=== PATIENT | male | born 1955 | race Caucasian/White ===

== ENCOUNTER 2020-12-14 10:42 | Emergency (ER) | payer MEDICARE, BC, SELFPAY ==
--- NOTE | ~2020-12-14 | XR_ITS ---
EXAMINATION: XR CHEST CLINICAL INFORMATION: Dry cough COMPARISON: None TECHNIQUE: 2 views of the chest were obtained. FINDINGS: There is no evidence of acute parenchymal disease, pneumothorax, or pleural effusion. Heart normal size. No evidence of pulmonary edema. There is an approximately 1.1 x 0.8 cm left mid hemithorax density overlying the posterior aspect of the left seventh rib. This may represent a bone island or possible calcified granuloma. XR/XR chest 2V IMPRESSION: No acute parenchymal disease.
[2020-12-14 11:32] VITALS: BP 126/80; PULSE 95; RESP 16; TEMP 37.3; O2SAT 97; BMI 30.9
[2020-12-14 12:38] LABS: MANUAL DIFF FLAG NO
[2020-12-14 12:43] LABS: Basophils Absolute Auto 0.1 X10*3/uL (0.0-0.2); Basophils Percent Auto 0.4 % (0-2); Eosinophils Absolute Auto 0.3 X10*3/uL (0.0-0.4); Eosinophils Percent Auto 2.4 % (0-4); Hematocrit 46.4 % (42-52); Hemoglobin 15.4 g/dl (14.0-18.0); Imm Gran Abs Auto 0.23 X10*3/uL (0.00-0.03); Imm Gran Pct Auto 1.9 % (0.0-0.4); Lymphocytes Percent Auto 16.2 % (20-40); Mean Corpuscular HGB Conc 33.2 g/dl (31.0-36.0); Mean Corpuscular Hemoglobin 28.6 pg (27.0-33.0); Mean Corpuscular Volume 86.2 fL (80-98); Mean Platelet Volume 11.4 fL (9.4-12.4); Monocytes Absolute Auto 0.9 X10*3/uL (0.1-1.2); Monocytes Percent Auto 6.9 % (2-11); Neutrophils Absolute Auto 8.9 X10*3/uL (2.0-8.3); Neutrophils Percent Auto 72.2 % (45-73); Platelet Count 270 X10*3/uL (160-400); Red Blood Count 5.38 X10*6/uL (4.60-5.80); Red Cell Distribution Width 11.9 % (11.0-16.0); White Blood Count 12.3 X10*3/uL (4.8-10.8)
[2020-12-14 13:53] VITALS: BP 130/88; PULSE 93; RESP 18; TEMP 37.1; O2SAT 98
--- NOTE | 2020-12-14 14:33 | ED_ITS ---
HPI - General Adult General Chief complaint: General Medical Stated complaint: passed out after coughing Time Seen by Provider: 12/14/20 13:50 Source: patient and family (, Juanis) Mode of arrival: ambulatory Limitations: no limitations History of Present Illness HPI narrative: 64-year-old male who presents emergency department for evaluation of cough x2 weeks. Patient states that he has coughing fits and spasms to the point where his face gets red any pops blood vessels on his face. He states that he has had this symptom for approximately 2 weeks. He states that the cough is nonproductive. He states that last night he was in bed and woke up with a coughing fit that caused him the pass out rule out of bed. Denies any injury from rolling out of bed. States he has had low-grade fever at home as high as 100.5? F. He denied chest pain, shortness of breath, dyspnea on exertion. He states he is having difficulty sleeping secondary to his cough. He has not noticed any rashes. He has not had any known tick bites. The patient was seen by his PCP 4 days prior diagnosed with upper respiratory tract infection. He was advised to take [id number] medications such as Mucinex and Zyrtec. States he has been taking these medications with no improvement. Patient does have hypertension and takes lisinopril/hydrochlorothiazide. The patient completed his Moderna COVID-19 vaccination on 10/29/2020. Related Data Previous Rx's Medication Instructions Recorded doxycycline hyclate 100 mg PO Q12H 10 Days #20 tab 12/14/20 Allergies Allergy/AdvReac Type Severity Reaction Status Date / Time No Known Allergies Allergy Verified 12/14/20 11:36 Review of Systems Review of Systems: Yes all other systems are reviewed and are negative [facility] Past Medical History [facility] Narrative: Past social history: The patient is . He denies tobacco, alcohol and drug use. Medical History High cholesterol HTN (hypertension) Prediabetes Social History Social History Advance Directives: No Advance Directives Information Provided: No Physical Exam 2 Vital Signs: Vital Signs: Last Vital Signs Temp 98.7 F 12/14/20 13:53 Pulse 93 12/14/20 13:53 Resp 18 06/10/21 13:53 BP 130/88 12/14/20 13:53 Pulse Ox 98 12/14/20 13:53 Body Mass Index 30.9 Const: General: cooperative and healthy appearing Orientation/consciousness: oriented to person and oriented to place Limitations: no limitations HENMT: Head: Yes normal to inspection, Yes normocephalic and Yes atraumatic Ears: external ears normal General nose exam: Normal external nose present Face and sinus: Yes normal facial exam Mouth: Normal oral and palatal mucosa present Throat: Yes posterior oropharynx normal Eyes: Periorbital: periorbital findings normal Eyelids: Yes eyelids normal Conjunctivae: conjunctivae normal Sclerae: sclerae normal Corneas: corneas normal Pupils: Equal, round and reactive pupils present Direct Ophthalmoscopy: normal light reflex Neck: Neck: Yes full ROM, Yes no lymphadenopathy, Yes no meningeal signs, Yes trachea midline and Yes supple Chest: Chest palpation & inspection: normal inspection of the chest and normal palpation of entire chest wall Resp: Other: Patient develops coughing fit when he takes a deep breath in. Effort & Inspection: normal respiratory effort and able to speak in complete sentences Auscultation: rhonchi throughout Cardio: Rate: regular rate Rhythm: regular rhythm Heart sounds: S1 normal heart sound present, S2 normal heart sound present and no murmurs GI: Inspection: Yes normal to inspection Palpation (GI): Soft to palpation, nontender, no guarding, not rigid and No hepatosplenomegaly present : General: Yes no CVA tenderness Back/Spine/Pelvis: Back: no CVA tenderness Cervical Spine: normal cervical lordosis Thoracic/Lumbar Spine: thoracic and lumbar spine normal to inspection Skin: Lesions: no lesions Rashes: no rashes Wounds: no wounds Neuro: General: oriented to person, oriented to place and no meningeal signs Cranial nerves: Yes CN's II-XII intact bilaterally and Yes Equal, round and reactive pupils present Cognition (Neuro): normal cognition Motor exam (neuro): 5/5 motor strength present throughout Extrem: General: Yes normal to inspection and Yes full ROM Psych: Appearance: well kempt Mental Status: mental status grossly normal Speech and movement: Normal speech and movement present Affect: normal affect Attitude: cooperative Thought process: Normal thought process present Thought content: Normal thought content present Course Course Course Narrative: 64-year-old male who presents emergency department for evaluation of persistent, spasms of coughing x2 weeks with an episode post-tus sive syncope last night. Vital signs revealed a slightly elevated temperature at 99.2? otherwise remarkable with an O2 saturation of 97% on room air. Physical examination revealed diffuse rhonchi and coughing with expiration on his lung exam. Exam was otherwise unremarkable. The [place] [address]. Chest x-ray revealed no acute infiltrates. At this time, I am concerned the patient may have an atypical bacterial infection and I did discuss this with him. The patient will be treated empirically with doxycycline 100 mg twice a day for 10 days. He was advised to follow his PCPs other recommendations for vlav-vba-unjbyar medications. He was given printed instructions advised to follow-up with his PCP in 2 days for re- evaluation and return if symptoms get worse. Medical Decision Making Lab Data Result diagrams: 12/14/20 12:32 12/14/20 12:33 Labs: Lab Results 12/14/20 Range/Units 12:32 WBC 12.3 H (4.8-10.8) X10*3/uL RBC 5.38 (4.60-5.80) X10*6/uL Hgb 15.4 (14.0-18.0) g/dl Hct 46.4 (42-52) % MCV 86.2 (80-98) fL MCH 28.6 (27.0-33.0) pg MCHC 33.2 (31.0-36.0) g/dl RDW 11.9 (11.0-16.0) % Plt Count 270 (160-400) X10*3/uL MPV 11.4 (9.4-12.4) fL Immature Gran % (Auto) 1.9 H (0.0-0.4) % Neut % (Auto) 72.2 (45-73) % Lymph % (Auto) 16.2 L (20-40) % Kent % (Auto) 6.9 (2-11) % Eos % (Auto) 2.4 (0-4) % Baso % (Auto) 0.4 (0-2) % Lymph # (Auto) 2.0 (1.2-4.9) X10*3/uL Kent # (Auto) 0.9 (0.1-1.2) X10*3/uL Eos # (Auto) 0.3 (0.0-0.4) X10*3/uL Baso # (Auto) 0.1 (0.0-0.2) X10*3/uL Abs Immat Gran (auto) 0.23 H (0.00-0.03) X10*3/uL Absolute Neuts (auto) 8.9 H (2.0-8.3) X10*3/uL Absolute Nucleated RBC 0.000 (0.0-0.012) X10*3/uL Nucleated RBC % (auto) 0.0 (0.0-0.2) /100WBC Discharge Plan Discharge Clinical Impression: Post-tussive syncope Acute bronchitis Qualifiers: Bronchitis organism: unspecified organism Qualified Code(s): J20.9 - Acute bronchitis, unspecified Patient Disposition: Home, Self-Care Instructions: Syncope (ED), Acute Bronchitis (ED) Additional Instructions: Your white blood cell count was slightly elevated at 12,300 thousand three hundred. Your chest x-ray did not reveal any evidence of pneumonia. At this time, I am concerned that you may have an atypical bacterial infection causing your cough. Take doxycycline 100 mg pills, 1 pill twice a day for 10 days. Continue the outpatient medications as recommended by your doctor. Follow-up with your doctor in 2 days. Please return to the emergency department if your symptoms get worse or if you develop any symptoms that are concerning to you. Prescriptions: New doxycycline hyclate 100 mg tablet 100 mg PO Q12H 10 Days Qty: 20 RF: 0
== END 2020-12-14 14:47 | disposition home or self-care (01) ==
PROVIDERS: Emergency Provider Emergency Medicine Emergency Medical Services; PCP Internal Medicine
DX: J20.9 Acute bronchitis, unspecified (principal); I10 Essential (primary) hypertension; Z79.899 Other long term (current) drug therapy
CPT/HCPCS: 36415; 71046; 85025; 99283

== ENCOUNTER 2023-04-04 08:57 | Outpatient (AMB) | payer MEDICARE, SELFPAY ==
--- NOTE | 2023-04-04 09:30 | MHC.OFFWIV ---
Intake Vital Signs 04/04/23 09:35 Height 5 ft 2 in Weight 175 lb BMI 32.0 BP 110/70 Blood Pressure Location Rt brachial Position Sitting Pulse 93 Pulse Source Pulse Oximeter Temp 96.2 F L Temp Source Temporal Artery Scan Pulse Oximetry (%) 100 Oxygen Delivery Method Room Air Intake Visit Reasons: EP rash on RT Thigh/lump Intake Note: Pt is here c/o rash on his upper right thigh. Pt states he has had a rash for over one week. Patient Tobacco Use Status: Never used Tobacco Allergies No Known Allergies Allergy (Verified 04/04/23 09:31) Do you need a note to return to daycare/school/sports/work: No HPI HPI Comments History of Present Illness Details This is a 67-year-old male with a past medical history of hypertension, hyperlipidemia and depression presenting for evaluation of a lesion on his left buttock that is itchy and painful. Patient first noticed an itching sensation approximately 1 week ago and then developed a lump underlying the lesion. Patient states it is uncomfortable to touch and he has used Benadryl lotion, zinc cream and pain cream topically without relief. Patient denies having any fevers, chills or discharge from this lesion. Additionally, he denies any trauma to his left buttock. [facility] Medical History Prediabetes High cholesterol HTN (hypertension) Social History Patient Tobacco Use Status: Never used Tobacco Review of Systems Const Denies chills, Denies fatigue and Denies fever(s) Skin/Breast Reports as per HPI, Reports pruritus, Reports lesions, Reports new lesions, Reports erythema, Denies unusual bruising and Denies wounds Psych Reports no additional complaints Endo Denies fatigue Physical Exam Vital Signs: Last Vital Signs Temp 96.2 F L 04/04/23 09:35 Pulse 93 04/04/23 09:35 BP 110/70 04/04/23 09:35 Pulse Ox 100 04/04/23 09:35 Oxygen Delivery Method Room Air 04/04/23 09:35 BMI result Body Mass Index 32.0 Const General: cooperative and comfortable; No anxious Nutritional Appearance: well nourished Orientation/consciousness: patient oriented x3 Limitations: no limitations Skin Lesions: lesion noted (excoriated erythematous lesion 2.5cm round L lateral buttock) buttock size (2.5), borders well-defined, color red, consistency firm; not fluctuant and not mobile, morphology, surface not with central clearing and with discharge, tender and other (no central fluctuance or active exudate) Wounds: no wounds Neuro General: patient oriented x3 Psych Appearance: grossly normal Mental Status: mental status grossly normal Insight: Good insight present (Psych) Judgement: Good judgement present (Psych) Assessment & Plan Assessment & Plan (1) Abscess of buttock, left: Code(s): L02.31 - Cutaneous abscess of buttock Plan: Patient will be discharged home and instructed to use warm compresses at least 4 times daily and take doxycycline twice daily for the next 7 days. Patient is encouraged to be re-evaluated by his primary care physician or return to urgent care in 5 days if he sees no clinical improvement. Medications: New doxycycline monohydrate (Monodox) 100 mg PO BID 14 caps 0RF Coding Level of Care Code New Pt Level 3 (26924) Diagnoses Abscess of buttock, left L02.31 Time Spent (min) 15
[2023-04-04 09:35] VITALS: BP 110/70; PULSE 93; TEMP 35.7; O2SAT 100; BMI 32.0
== END 2023-04-04 10:45 | disposition home or self-care (01) ==
PROVIDERS: PCP Nurse Practitioner Family; Visit Provider Physician Assistant
DX: L02.31 Cutaneous abscess of buttock (principal)
CPT/HCPCS: 99203

== ENCOUNTER 2023-05-23 09:50 | Outpatient (AMB) | payer MEDICARE, SELFPAY ==
--- NOTE | 2023-05-23 11:32 | MHC.OFFWIV ---
Intake Vital Signs 05/23/23 11:33 Height 5 ft 2 in Weight 79.379 kg BMI 32.0 BP 104/64 Blood Pressure Location Lt brachial Position Sitting Pulse 71 Pulse Source Pulse Oximeter Temp 97.8 F Temp Source Temporal Artery Scan Pulse Oximetry (%) 98 Oxygen Delivery Method Room Air Intake Visit Reasons: EP, left leg pain Intake Note: pt is here for c/o left leg pain Patient Tobacco Use Status: Never used Tobacco Allergies No Known Allergies Allergy (Verified 05/23/23 11:34) Do you need a note to return to daycare/school/sports/work: Yes HPI HPI Comments History of Present Illness Details 1134 67 year old male hx of prediabetes, htn, hld presents w/ complains of throbbing left lower extremity, worse in the thigh region however still feels it below his knee. Patient reports this is been ongoing for 2 days and pretty uncomfortable. This has never happened to him before. No history of blood clots. No history of smoking, long travel, hormone replacement therapy, malignancy. Patient denies chest pain, shortness of breath, fevers, chills, nausea, vomiting, abdominal pain. PE benign Likely musculoskeletal pain versus DVT. Unlikely arterial occlusion, threat to limb or neurovascular compromise. Plan- will obtain venous duplex. Educated patient on diagnosis and treatment plan, answered all question, patient verbalizes understanding. At this time patient will be discharged home, advised to return with new or worsening symptoms. Educated on worrisome signs and symptoms and when to return. At this time I feel comfortable discharge home. [facility] Medical History Prediabetes High cholesterol HTN (hypertension) Social History Patient Tobacco Use Status: Never used Tobacco Review of Systems Const Details: Constitutional : No Weight loss, No Fever, No Chills, No Fatigue, No Malaise ENT/Mouth : No sore throat, No Rhinorrhea Eyes: No Eye Pain, No Swelling, No Redness Cardiovascular : No Chest Pain, No SOB, No Dyspnea on Exertion, No Orthopnea, No Edema, No Palpitations Respiratory : No Cough, No Sputum, No Wheezing Gastrointestinal : No Nausea, No Vomiting, No Diarrhea, No Constipation, No abdominal Pain, No Hematochezia, No Melena Genitourinary : No Dysuria, No Urinary Frequency, No Hematuria, Musculoskeletal : No joint pain, No Myalgias, No Joint Swelling, + leg pain Skin : No Skin Lesions, No rash Neuro : No Weakness, No Numbness, No Dizziness, No Headache Psych : No Anxiety/Panic, No Depression All other systems reviewed and are negative All systems reviewed & are unremarkable except as noted in HPI and below Physical Exam Vital Signs: Vital signs stable Appearance: Alert.? Oriented X3.? No acute distress.? Head: Normocephalic, atraumatic, no step-offs or deformities Eyes: Pupils equal, round and reactive to light.? ENT: Pharynx normal.? Neck: Normal inspection.? Neck supple.? CVS: Normal heart rate and rhythm.? Pulses normal.? Respiratory: No respiratory distress.? Breath sounds normal.? Abdomen: Soft and nontender.? Skin: Skin warm and dry.? Normal skin color.? Normal skin turgor.? Extremities: No lower extremity edema.? No calf ttp. 5/5 strength to bilateral upper and lower extremities 2+ DP,AT,PT pulses equal and b/l Neuro: Oriented X 3.? No motor deficit.? No sensory deficit. CN 2-12 intact Assessment & Plan Assessment & Plan (1) Left leg pain: Code(s): M79.605 - Pain in left leg Plan Take your medications as prescribed. If you were prescribed antibiotics today, it is important that you take your medication to their entirety, do not skip any doses, do not finish them early. Follow-up with your primary care provider this week. Return to the emergency department with new or worsening symptoms. Such as fevers, chills, chest pain, shortness of breath, nausea, vomiting, dizziness, headache, vision changes, lethargy In case of emergency call 911 Orders: Orders US venous duplex LE LT Today M79.605 - Pain in left leg Coding Level of Care Code Est Pt Level 3 (34674) Diagnoses Left leg pain M79.605
[2023-05-23 11:33] VITALS: BP 104/64; PULSE 71; TEMP 36.6; O2SAT 98; BMI 32.0
== END 2023-05-23 12:05 | disposition home or self-care (01) ==
PROVIDERS: PCP Nurse Practitioner Family; Visit Provider Physician Assistant
DX: M79.605 Pain in left leg (principal)
CPT/HCPCS: 99213

== ENCOUNTER 2023-05-23 11:55 | Outpatient (REF) | payer MEDICARE, SELFPAY ==
--- NOTE | ~2023-05-23 | US_ITS ---
EXAMINATION: US VENOUS ULTRASOUND WITH DOPPLER LOWER EXTREMITY, LEFT CLINICAL INFORMATION: Left leg pain. COMPARISON: None available. TECHNIQUE: Ultrasound of the deep veins is performed from the hip to the calf with compression sonography and color and pulse Doppler assessment. Spectral analysis with color-flow imaging is performed. FINDINGS: There is normal venous compression and respiratory variation and augmented flow. The visualized common femoral vein, superficial femoral vein, profunda femoral vein, popliteal vein, and the trifurcation region shows no evidence of deep venous thrombosis. There is no significant popliteal fossa cyst. The area of pain in the left lateral thigh was examined. No discrete abnormality seen. US/US venous duplex LE LT IMPRESSION: No DVT demonstrated in the left lower extremity.
== END 2023-05-23 11:56 | disposition home or self-care (01) ==
LOC: HO.HMGCX 11:55
PROVIDERS: Visit Provider Physician Assistant
DX: M79.605 Pain in left leg (principal)
CPT/HCPCS: 93971

== ENCOUNTER 2023-05-25 07:55 | Emergency (ER) | payer MEDICARE, SELFPAY ==
--- NOTE | ~2023-05-25 | XR_ITS ---
EXAMINATION: XR knee LT 3V CLINICAL INFORMATION: Reason for Exam left knee pain COMPARISON: None available at the time of this dictation. TECHNIQUE: Frontal lateral oblique views 4 views. FINDINGS: BONES: No fracture or dislocation is present. JOINTS: Joint spaces are preserved. No osteophytes. SOFT TISSUE: Normal XR/XR knee LT 3V IMPRESSION: No radiographic evidence of acute osseous changes. No significant osseous changes to explain patient's knee pain symptoms, MRI could be utilized to assess for possible soft tissue derangements if clinically indicated.
[2023-05-25 08:08] VITALS: BP 161/91; PULSE 95; RESP 20; TEMP 36.6; O2SAT 99; BMI 32.1
--- NOTE | 2023-05-25 08:34 | ED_ITS ---
HPI - General Adult General Chief complaint: Extremity Injury, Lower Stated complaint: L knee/leg pain Time Seen by Provider: 05/25/23 08:27 Source: patient Mode of arrival: ambulatory Limitations: no limitations History of Present Illness HPI narrative: 67 years old male presented to the emergency department complaining of left knee pain a traumatic for about a week or so. He was seen in the urgent care on May 23 ultrasound was done was negative for DVT. He has history of gout in the past. He has history of type 2 diabetes Onset (ago): week(s) (1) Location: lower extremity (left knee) Radiation: non-radiation Severity: moderate Quality: burning Pain Consistency: constant Relieving factors: none Exacerbating factors: none Associated symptoms: denies other symptoms Related Data Home Medications Medication Instructions Recorded Confirmed buspirone 15 mg tablet 15 mg PO BID 04/04/23 lisinopril 20 1 tab PO DAILY 04/04/23 mg-hydrochlorothiazide 12.5 mg tablet paroxetine HCl 30 mg tablet mg PO 04/04/23 simvastatin 40 mg tablet 40 mg PO BEDTIME 04/04/23 Previous Rx's Medication Instructions Recorded ibuprofen 800 mg tablet 800 mg PO TID PRN pain #20 tabs 05/25/23 Allergies Allergy/AdvReac Type Severity Reaction Status Date / Time No Known Allergies Allergy Verified 05/25/23 08:12 Review of Systems 2 Constitutional: Constitutional: Reports no additional constitutional complaints ENT: Reports system reviewed and no additional complaints, except as documented Musculoskeletal: Musculoskeletal: Reports no additional musculoskeletal complaints Neurologic: Reports Abnormal speech present ON LICENSE OF [facility] Past Medical History Medical History Prediabetes High cholesterol HTN (hypertension) Social History Social History Patient Tobacco Use Status: Never used Tobacco Use of substances other than those prescribed or required for medical reasons: No Advance Directives: No Advance Directives Information Provided: Yes Physical Exam ED Vital Signs: Vital Signs - 24 hr 05/25/23 08:08 05/25/23 09:04 Temperature 97.9 F 98.3 F Pulse Rate 95 94 Respiratory Rate 20 16 Blood Pressure 161/91 H 153/95 H Pulse Oximetry 99 96 Oxygen Delivery Method Room Air Room Air BMI result Body Mass Index 32.1 He looks well is no toxic-appearing Const General: cooperative, comfortable and no acute distress Nutritional Appearance: well nourished Orientation/consciousness: patient oriented x3 Limitations: no limitations HENMT Head: Yes normal to inspection Ears: hearing grossly normal bilaterally Face and sinus: Yes normal facial exam Throat: Yes posterior oropharynx normal Neck Neck: Yes normal visual inspection Chest Chest palpation & inspection: normal inspection of the chest Resp Effort & Inspection: normal respiratory effort Auscultation: clear to auscultation bilaterally Cardio Jugular venous distension: no JVD Rate: regular rate Rhythm: regular rhythm GI Inspection: Yes normal to inspection Palpation (GI): Soft to palpation Auscultation: normal bowel sounds General: Yes no CVA tenderness Back/Spine/Pelvis Back: no CVA tenderness Skin General skin exam: no rashes or lesions noted and elasticity normal Lesions: no lesions Rashes: no rashes Hair: normal Neuro General: patient oriented x3 Cranial nerves: Yes CN's II-XII intact bilaterally Cognition (Neuro): normal cognition Speech: Abnormal speech present Gait exam (Neuro): Normal gait present Extrem Other: Left knee no deformity no redness no effusion General: Yes normal to inspection Course Reevaluation(s) Reevaluation #1: Remains stable afebrile nontoxic workup negative inflammatory marker normal white count normal x-ray reviewed within normal limit discharge of the pain is unclear he may be radiculopathy or muscular pain will refer to Ortho as outpatient Time: 10:09 Medical Decision Making Medical Decision Making [facility] Narrative: Patient presented with left knee pain already had an ultrasound as outpatient 2 days ago negative for DVT, will do an x-ray at this time and check labs @10 AM workup negative labs within normal limit including inflammatory marker, x-ray no fracture, ultrasound was done 2 days ago I do not think any to repeat another one . I think the patient can be safely discharged home follow-up with ortho. He is very comfortable with the plan of care. Differential Diagnosis Differential Diagnoses: The differential diagnosis associated with the presentation includes DJD/gout Admission/Observation Consideration of admission/observation: Escalation of care including admission/observation considered Lab Data [facility] Lab Attestation statement: I reviewed the patient's lab results. 05/25/23 08:42 05/25/23 08:42 Labs: Lab Results 05/25/23 Range/Units 08:42 WBC 8.5 (4.8-10.8) X10*3/uL RBC 5.15 (4.60-5.80) X10*6/uL Hgb 14.6 (14.0-18.0) g/dl Hct 42.2 (42.0-52.0) % MCV 81.9 (80.0-98.0) fL MCH 28.3 (27.0-33.0) pg MCHC 34.6 (31.0-36.0) g/dl RDW 12.1 (11.0-16.0) % Plt Count 187 (160-400) X10*3/uL MPV 11.2 (9.4-12.4) fL Immature Gran % (Auto) 0.9 H (0.0-0.4) % Neut % (Auto) 65.6 (45-73) % Lymph % (Auto) 24.4 (20-40) % Sanders % (Auto) 6.4 (2-11) % Eos % (Auto) 2.2 (0-4) % Baso % (Auto) 0.5 (0-2) % Lymph # (Auto) 2.1 (1.2-4.9) X10*3/uL Sanders # (Auto) 0.5 (0.1-1.2) X10*3/uL Eos # (Auto) 0.2 (0.0-0.4) X10*3/uL Baso # (Auto) 0.0 (0.0-0.2) X10*3/uL Abs Immat Gran (auto) 0.08 H (0.00-0.03) X10*3/uL Absolute Neuts (auto) 5.5 (2.0-8.3) x10*3/uL Absolute Nucleated RBC 0.000 (0.0-0.012) X10*3/uL Nucleated RBC % (auto) 0.0 (0.0-0.2) /100WBC Sodium 141 (135-145) mmol/L Potassium 3.9 (3.3-5.1) mmol/L Chloride 107 (96-108) mmol/L Carbon Dioxide 24 (22-29) mmol/L Anion Gap 14 (12-20) BUN 15 (9-16) mg/dL Creatinine 0.98 (0.5-1.4) mg/dL Estim Creat Clear Calc 66.8 Estimated GFR > 60 Random Glucose 169 H (60-115) mg/dL Uric Acid 6.6 (3.4-7.0) mg/dL Calcium 10.0 (8.4-10.2) mg/dL Total Bilirubin 0.6 (0.0-1.0) mg/dL AST 20 (5-37) U/L ALT 21 (0-40) U/L Alkaline Phosphatase 61 (39-117) U/L C-Reactive Protein 0.21 (< or = 0.50) mg/dL Total Protein 6.9 (6.5-8.0) g/dL Albumin 4.4 (3.5-5.0) g/dL Independent Interpretation I performed an independent interpretation of an: Plain X-Ray Interpretation: Normal knee x-ray Radiology Impression Discussion of test interpretation with radiology: I have reviewed the radiologist's reading. Radiologist Impression: None available at the time of this dictation. TECHNIQUE: Frontal lateral oblique views 4 views. FINDINGS: BONES: No fracture or dislocation is present. JOINTS: Joint spaces are preserved. No osteophytes. SOFT TISSUE: Normal XR/XR knee LT 3V IMPRESSION: No radiographic evidence of acute osseous changes. No significant osseous changes to explain patient's knee pain symptoms, MRI could be utilized to assess for possible soft tissue derangements if clinically indicated. External Record Review External record reviewed: Outpatient record Review urgent care note to of 2 days ago Prescription Management I considered prescription management with: Pain Medication Discharge Plan Discharge Clinical Impression: Knee pain, left Patient Disposition: Home, Self-Care Instructions: Knee Pain (ED) Prescriptions: New ibuprofen 800 mg tablet 800 mg PO TID PRN (Reason: pain) Qty: 20 0RF No Action buspirone 15 mg tablet 15 mg PO BID paroxetine HCl 30 mg tablet PO simvastatin 40 mg tablet 40 mg PO BEDTIME lisinopril-hydrochlorothiazide 20-12.5 mg tablet 1 tab PO DAILY Referrals: Juan Carlos Negro MD [Physician] - 5 days
[2023-05-25 08:46] LABS: MANUAL DIFF FLAG NO
[2023-05-25 08:50] LABS: Basophils Percent Auto 0.5 % (0-2); Eosinophils Absolute Auto 0.2 X10*3/uL (0.0-0.4); Eosinophils Percent Auto 2.2 % (0-4); Hematocrit 42.2 % (42.0-52.0); Hemoglobin 14.6 g/dl (14.0-18.0); Imm Gran Abs Auto 0.08 X10*3/uL (0.00-0.03); Imm Gran Pct Auto 0.9 % (0.0-0.4); Lymphocytes Absolute Auto 2.1 X10*3/uL (1.2-4.9); Lymphocytes Percent Auto 24.4 % (20-40); Mean Corpuscular HGB Conc 34.6 g/dl (31.0-36.0); Mean Corpuscular Hemoglobin 28.3 pg (27.0-33.0); Mean Corpuscular Volume 81.9 fL (80.0-98.0); Mean Platelet Volume 11.2 fL (9.4-12.4); Monocytes Absolute Auto 0.5 X10*3/uL (0.1-1.2); Monocytes Percent Auto 6.4 % (2-11); Neutrophils Absolute Auto 5.5 x10*3/uL (2.0-8.3); Neutrophils Percent Auto 65.6 % (45-73); Platelet Count 187 X10*3/uL (160-400); Red Blood Count 5.15 X10*6/uL (4.60-5.80); Red Cell Distribution Width 12.1 % (11.0-16.0); White Blood Count 8.5 X10*3/uL (4.8-10.8)
[2023-05-25 09:04] VITALS: BP 153/95; PULSE 94; RESP 16; TEMP 36.8; O2SAT 96
[2023-05-25 09:04] LABS: Alanine Aminotransferase 21 U/L (0-40); Albumin Level 4.4 g/dL (3.5-5.0); Alkaline Phosphatase 61 U/L (39-117); Anion Gap 14 (12-20); Aspartate Amino Transferase 20 U/L (5-37); Bilirubin Total 0.6 mg/dL (0.0-1.0); Blood Urea Nitrogen 15 mg/dL (9-16); C Reactive Protein 0.21 mg/dL (< or = 0.50); Carbon Dioxide 24 mmol/L (22-29); Chloride 107 mmol/L (96-108); Creatinine Clr Calc Pharmacy 66.8; Estimated Glomerular Filt Rate > 60; Glucose Random 169 mg/dL (60-115); Potassium 3.9 mmol/L (3.3-5.1); Sodium 141 mmol/L (135-145); Total Protein 6.9 g/dL (6.5-8.0); Uric Acid 6.6 mg/dL (3.4-7.0)
--- NOTE | 2023-05-25 09:09 | PC.NURSE ---
back from xray. changed. no redness/swelling to left leg. reports left leg/thigh/knee intermittent pain x1 wk. RADFORD w/o limits. +CMS. aox4. calm, coop. no distress
[2023-05-25 10:00] VITALS: BP 151/99; PULSE 72; RESP 16; TEMP 36.9; O2SAT 97
== END 2023-05-25 10:38 | disposition home or self-care (01) ==
PROVIDERS: Emergency Provider Emergency Medicine; PCP Nurse Practitioner Family
DX: M25.562 Pain in left knee (principal); Z79.899 Other long term (current) drug therapy
CPT/HCPCS: 36415; 73562; 80053; 84550; 85025; 86140; 99284

== ENCOUNTER 2023-05-31 00:08 | Emergency (ER) | payer MEDICARE, SELFPAY ==
[2023-05-31 00:33] VITALS: BP 177/84; PULSE 73; RESP 18; TEMP 37.1; O2SAT 96; BMI 31.2
--- NOTE | 2023-05-31 01:37 | ED_ITS ---
HPI - General Adult General Chief complaint: Extremity Problem Stated complaint: Left leg pain Time Seen by Provider: 05/31/23 01:25 Source: patient, RN notes reviewed and old records reviewed Mode of arrival: ambulatory Limitations: no limitations History of Present Illness HPI narrative: 67-year-old male presents for evaluation of leg pain This is the patient's 3rd visit in the last 10 days for same complaint. He initially went to urgent care on 12/21/2022. He had an ultrasound to rule out DVT. Patient return to the ED 2 days later and had an x-ray and labs all of which was unremarkable. The patient was discharged with ibuprofen. He was given Orthopedic follow-up which he states is in the middle of June Patient has been using all the medications are recommended and states he continues to have pain occasion his left hip, sometimes in his left knee, the pain is sometimes and left thigh or left sotomayor. He denies any specific injury His pain is 10/10 and worse at night to the point where he cannot sleep. Related Data Home Medications Medication Instructions Recorded Confirmed buspirone 15 mg tablet 15 mg PO BID 04/04/23 lisinopril 20 1 tab PO DAILY 04/04/23 mg-hydrochlorothiazide 12.5 mg tablet paroxetine HCl 30 mg tablet mg PO 04/04/23 simvastatin 40 mg tablet 40 mg PO BEDTIME 04/04/23 Previous Rx's Medication Instructions Recorded ibuprofen 800 mg tablet 800 mg PO TID PRN pain #20 tabs 05/25/23 oxycodone-acetaminophen 5 mg-325 1 tab PO BEDTIME PRN severe pain 05/31/23 mg tablet (Percocet) (scale score 7-10) #14 tabs Allergies Allergy/AdvReac Type Severity Reaction Status Date / Time No Known Allergies Allergy Verified 05/25/23 08:12 Review of Systems Constitutional: Constitutional: Reports as per HPI, Denies chills and Denies fever(s) Cardiovascular: Cardiovascular: Denies chest pain and Denies dyspnea Respiratory: Respiratory: Denies cough and Denies dyspnea PMFSH Past Medical History Medical History Prediabetes High cholesterol HTN (hypertension) Social History Patient Tobacco Use Status: Never used Tobacco Advance Directives: No Advance Directives Information Provided: Yes Physical Exam ED Vital Signs: Vital Signs - 24 hr 05/31/23 00:33 Temperature 98.7 F Pulse Rate 73 Respiratory Rate 18 Blood Pressure 177/84 H Pulse Oximetry 96 Oxygen Delivery Method Room Air BMI result Body Mass Index 31.2 Const General: healthy appearing, comfortable, no acute distress, alert and awake Nutritional Appearance: well nourished Orientation/consciousness: patient oriented x3 HENMT Head: Yes normocephalic and Yes atraumatic Throat: Yes posterior oropharynx normal Eyes Eyelids: Yes eyelids normal Conjunctivae: conjunctivae normal Sclerae: sclerae normal Corneas: corneas normal Pupils: Equal, round and reactive pupils present EOM: EOMs intact bilaterally Neck Neck: Yes full ROM Resp Effort & Inspection: normal respiratory effort, able to speak in complete sentences and not labored Cardio Rate: regular rate Rhythm: regular rhythm GI Inspection: No distended Palpation (GI): Soft to palpation, not firm, nontender, no guarding and not rigid Back/Spine/Pelvis Other: No lumbar vertebral or paraspinous muscle tenderness. Skin General skin exam: elasticity normal Neuro General: patient oriented x3 Cranial nerves: Yes Equal, round and reactive pupils present and Yes Bilaterally intact EOM present Cognition (Neuro): normal cognition Extrem Other: Moving all extremities well without any obvious deformities Patient has full range of motion with flexion and extension of the left hip, knee, ankle. No tenderness with palpation left hip, knee, ankle. No calf tenderness Negative [place] Medical Decision Making Medical Decision Making MDM Narrative: 67-year-old male presents for evaluation of left lower extremity pain. This is her 3rd visit. I reviewed his recent workup that included ultrasound of the lower extremity, x-rays of the left lower extremity as well as labs with no inflammations inflammatory markers. He does have a history of gout but there is no erythema is symptoms are intermittent. This is less likely to be gout. I do not see any indication for further emergent workup or imaging at this time. The patient will be discharged with Percocet for breakthrough pain and will follow- up with orthopedics as planned Differential Diagnosis Differential Diagnoses: The differential diagnosis associated with the present ation includes Left leg pain Osteoarthritis Neuropathy Radiculopathy Sciatica DVT Gout Tests considered The following testing was considered but not selected: Repeating labs, x-ray imaging of the left lower extremity was considered Prescription Management I considered prescription management with: Pain Medication Chronic Conditions Patient?s care impacted by: Hypertension Discharge Plan Discharge Clinical Impression: Acute pain of left lower extremity Patient Disposition: Home, Self-Care Instructions: Leg Pain (ED) Additional Instructions: You may continue to use ibuprofen/Tylenol as needed for pain. You may continue to use your lidocaine patches or creams Use Percocet as needed for severe, breakthrough pain. This may make you sleepy, do not drink alcohol or drive after taking it. Do not take extra Tylenol if your taking Percocet as Tylenol is in this medication Follow-up with orthopedics as discussed Prescriptions: New oxycodone-acetaminophen [Percocet] 5-325 mg tablet 1 tab PO BEDTIME PRN (Reason: severe pain (scale score 7-10)) Qty: 14 0RF Rx Instructions: Partial Fill upon patient request. No Action ibuprofen 800 mg tablet 800 mg PO TID PRN (Reason: pain) Qty: 20 0RF buspirone 15 mg tablet 15 mg PO BID paroxetine HCl 30 mg tablet PO simvastatin 40 mg tablet 40 mg PO BEDTIME lisinopril-hydrochlorothiazide 20-12.5 mg tablet 1 tab PO DAILY
[2023-05-31] MEDS: Ketorolac Tromethamine 30 MG/ML VIAL IM (01:56)
--- NOTE | 2023-05-31 01:59 | PC.NURSE ---
pt medicated per mar prior to d/c. pt ambulatory with steady gait. leg appears normal in color no redness/swelling noted. full rom. pt will f/u with orthopedics.
== END 2023-05-31 02:01 | disposition home or self-care (01) ==
PROVIDERS: Emergency Provider Internal Medicine; PCP Nurse Practitioner Family
DX: M79.605 Pain in left leg (principal); I10 Essential (primary) hypertension; E78.5 Hyperlipidemia, unspecified; Z79.899 Other long term (current) drug therapy; Z79.02 Long term (current) use of antithrombotics/antiplatelets
CPT/HCPCS: 96372; 99283; 99284; J1885

== ENCOUNTER 2023-06-09 05:00 | Emergency (ER) | payer MEDICARE, SELFPAY ==
[2023-06-09 05:01] VITALS: BP 171/117; PULSE 90; RESP 16; TEMP 36.1; O2SAT 99; BMI 32.1
--- NOTE | 2023-06-09 08:10 | ED.GENADULT ---
HPI - General Adult General Chief complaint: Extremity Injury, Lower Stated complaint: knee/hip pain Time Seen by Provider: 06/09/23 08:03 Source: patient Mode of arrival: ambulatory Limitations: no limitations History of Present Illness HPI narrative: This is the 4th visit in 4 weeks for left knee pain. He has had negative doppler for DVT, negative xray there is mild djd. He comes asking for narcotics. There is no fever, his inflammatory markers were negative. He denies any radicular back pain. He is scheduled to see Dr. Negro on 06/19 Onset (ago): week(s) Location: left (knee) Severity: mild Related Data Home Medications Medication Instructions Recorded Confirmed buspirone 15 mg tablet 15 mg PO BID 04/04/23 lisinopril 20 1 tab PO DAILY 04/04/23 mg-hydrochlorothiazide 12.5 mg tablet paroxetine HCl 30 mg tablet mg PO 04/04/23 simvastatin 40 mg tablet 40 mg PO BEDTIME 04/04/23 Previous Rx's Medication Instructions Recorded ibuprofen 800 mg tablet 800 mg PO TID PRN pain #20 tabs 05/25/23 oxycodone-acetaminophen 5 mg-325 1 tab PO BEDTIME PRN severe pain 05/31/23 mg tablet (Percocet) (scale score 7-10) #14 tabs cyclobenzaprine 10 mg tablet 10 mg PO TID #10 tabs 06/09/23 naproxen 500 mg tablet (Naprosyn) 500 mg PO BID #20 tabs 06/09/23 Allergies Allergy/AdvReac Type Severity Reaction Status Date / Time No Known Allergies Allergy Verified 05/25/23 08:12 Review of Systems Review of Systems: Yes all other systems are reviewed and are negative Neurologic: Denies Sensory deficit (Neuro) [facility] Past Medical History Medical History Prediabetes High cholesterol HTN (hypertension) Social History Social History Patient Tobacco Use Status: Never used Tobacco Advance Directives: No Advance Directives Information Provided: Yes Physical Exam ED Vital Signs: Vital Signs - 24 hr 06/09/23 05:01 Temperature 97.0 F Pulse Rate 90 Respiratory Rate 16 Blood Pressure 171/117 H Pulse Oximetry 99 Oxygen Delivery Method Room Air BMI result Body Mass Index 32.1 Const General: healthy appearing Nutritional Appearance: average body habitus Orientation/consciousness: oriented to person and patient oriented x3 Limitations: no limitations HENMT Head: Yes normal to inspection Ears: external ears normal General nose exam: Normal external nose present Mouth: Normal oral and palatal mucosa present and oropharynx normal Throat: Yes posterior oropharynx normal Eyes General: appearance normal, both eyes and all related structures Neck Neck: Yes normal visual inspection Chest Chest palpation & inspection: normal inspection of the chest Resp Auscultation: clear to auscultation bilaterally Cardio Jugular venous distension: no JVD Rate: regular rate Rhythm: regular rhythm Heart sounds: S1 normal heart sound present and S2 normal heart sound present GI Inspection: Yes normal to inspection Palpation (GI): Soft to palpation, nontender and No hepatosplenomegaly present Auscultation: normal bowel sounds General: Yes no CVA tenderness Back/Spine/Pelvis Back: no CVA tenderness Skin General skin exam: no rashes or lesions noted Neuro General: oriented to person and patient oriented x3 Cranial nerves: Yes CN's II-XII intact bilaterally Motor exam (neuro): 5/5 motor strength present throughout Sensory Exam: No Sensory deficit (Neuro) Extrem Other: looks chronic changes no swelling non effusion, no erythema, full range of motion General: Yes normal to inspection and Yes full ROM Psych Appearance: grossly normal Course Reevaluation(s) Reevaluation #1: Patient with knee pain out of proportion to physical findings will get on Naprosyn and flexeril and have patient follow up with Dr. Negro Time: 08:39 Medical Decision Making Differential Diagnosis Differential Diagnoses: The differential diagnosis associated with the presentation includes (septic joint, gout, arthritis, radicular pain) External Record Review External record reviewed: Outpatient record and Prior outpatient radiology Prescription Management I considered prescription management with: Pain Medication (narcotic meds considered but pain out of proportion will start with antiinflammatory) Chronic Conditions Patient?s care impacted by: Diabetes and Hypertension Discharge Plan Discharge Clinical Impression: Chronic knee pain Patient Disposition: Home, Self-Care Instructions: Knee Pain (ED) Prescriptions: New naproxen [Naprosyn] 500 mg tablet 500 mg PO BID Qty: 20 0RF cyclobenzaprine 10 mg tablet 10 mg PO TID Qty: 10 0RF No Action oxycodone-acetaminophen [Percocet] 5-325 mg tablet 1 tab PO BEDTIME PRN (Reason: severe pain (scale score 7-10)) Qty: 14 0RF Rx Instructions: Partial Fill upon patient request. ibuprofen 800 mg tablet 800 mg PO TID PRN (Reason: pain) Qty: 20 0RF buspirone 15 mg tablet 15 mg PO BID paroxetine HCl 30 mg tablet PO simvastatin 40 mg tablet 40 mg PO BEDTIME lisinopril-hydrochlorothiazide 20-12.5 mg tablet 1 tab PO DAILY Referrals: Felton Liu MD [Primary Care Provider] - 5 days Juan Carlos Negro MD [Physician] - 10 days
--- NOTE | 2023-06-09 09:10 | PC.NURSE ---
this RN took over care at this time. medication not administered per provider order d/t when this RN walked into room w/ medication/discharge paperwork - pt left facility. pt's discharge paperwork was already in - pt was just no longer in room.
== END 2023-06-09 09:12 | disposition home or self-care (01) ==
PROVIDERS: Emergency Provider Emergency Medicine; PCP Internal Medicine
DX: M25.562 Pain in left knee (principal); Z79.899 Other long term (current) drug therapy
CPT/HCPCS: 99282; 99283

== ENCOUNTER 2023-06-19 08:47 | Outpatient (AMB) | payer MEDICARE, SELFPAY ==
--- NOTE | 2023-06-19 08:48 | MHC.OFFVIS ---
Intake Vital Signs 06/19/23 08:49 Height 5 ft 1 in Weight 170 lb BMI 32.1 Intake Visit Reasons: New Patient - Left Knee Pain Intake Note: Reid is a 67 year old male who presents today as a new patient with complaints of left knee pain. Patient reports that he has had ongoing left leg pain for about 2 months now, this pain radiates up and down the leg. He has been seen in the [facility] multiple times recently for continued pain, they provided him with NSAIDS and Lidocaine patches. Pain feels better with movement, and is at its worst at night. He is taking naproxen which he finds helpful Allergies No Known Allergies Allergy (Verified 05/25/23 08:12) HPI New Patient - Left Knee Pain HPI Details Reid is a 67 year old Diabetic man who presents to discuss his left leg pain. He complains of pain which radiates up and down his left leg. His pain is worse at night and is limiting his sleep, but improves with movement. He says his pain has been present for ~2 months now He has been seen in the ED multiple times in the last month, and has been given prescriptions for Ibuprofen, Percocets, Flexeril, and Naproxen, as well as Lidocaine patches. He says the Naproxen has been helpful. He denies injury. He states it is worse when he is lying down. He states it is in his knee but extends into his tibia and occasionally in his thigh and occasionally his low back. When asked him if he has numbness burning or tingling has a difficult time identify if he has any of those. He has been to the emergency room for the several times. [facility] Medical History (Updated 06/19/23 @ 09:26 by Juan Carlos Negro MD) Prediabetes High cholesterol HTN (hypertension) Surgical History (Updated 06/19/23 @ 08:53 by Hansa Tirado CMA) H/O hernia repair Social History (Updated 06/19/23 @ 08:54 by Hansa Tirado CMA) Patient Tobacco Use Status: Never used Tobacco Current occupational status: retired Review of Systems Const All systems reviewed & are unremarkable except as noted in HPI and below Physical Exam Vital Signs: BMI result Body Mass Index 32.1 Const General: no acute distress, alert and awake Orientation/consciousness: patient oriented x3 HEENT Head: Yes normocephalic and Yes atraumatic Eyes EOM: EOMs intact bilaterally Resp Effort & Inspection: normal respiratory effort and able to speak in complete sentences Cardio Jugular venous distension: no JVD Skin General skin exam: turgor normal Rashes: no rashes Neuro General: patient oriented x3 Psych Appearance: grossly normal Affect: normal affect Attitude: cooperative Office Procedures Joint Injection/Drain Joint Injection/Drain Details: Injected 1 mL of Decadron and 3 mL 1% lidocaine and 3 mL of 0.25% Marcaine. Site was prepped using aseptic technique. Patient tolerated the procedure well. Primary Site: left knee Approach Used: anterolateral Coding - Large joint Procedure code (CPT) selection complete Results Reviewed Results Reviewed: I personally reviewed relevant radiographs. Normal knee radiographs Assessment & Plan Assessment & Plan (1) Pain of left lower extremity: Code(s): M79.605 - Pain in left leg Plan: This is a 67-year-old gentleman with left lower leg pain. He localizes pain to his knee but he also has pain in his thigh and his tibia and his low back. I recommend physical therapy and an injection in his left knee. He will continue to take nonsteroidal anti-inflammatories and will see me after physical therapy if his pain is still present. (2) Knee pain, left: Code(s): M25.562 - Pain in left knee Plan: Injected left knee. Plan Scribed for Juan Carlos Negro MD by Jarrod Weaver, rn medical inpatient services, on 06/19/23 at 9:00 AM, EST. Orders: Orders PT Evaluation and Treatment Today M25.562 - Pain in left knee, M79.605 - Pain in left leg Coding Level of Care Code New Pt Level 3 (43033) Diagnoses Pain of left lower extremity M79.605 Knee pain, left M25.562 CPT Codes Coding - Large joint: - Large joint ([id number])
[2023-06-19 08:49] VITALS: BMI 32.1
== END 2023-06-19 09:43 | disposition home or self-care (01) ==
PROVIDERS: PCP Nurse Practitioner Family; Visit Provider Orthopaedic Surgery
DX: M79.605 Pain in left leg (principal); M25.562 Pain in left knee
CPT/HCPCS: 20610; 99203

== ENCOUNTER → 2023-06-19 08:47 | Outpatient (BNVA) | payer MEDICARE, SELFPAY | PROVIDERS: PCP Nurse Practitioner Family; Visit Provider Orthopaedic Surgery | DX: M79.605 Pain in left leg (principal); M25.562 Pain in left knee | CPT/HCPCS: 20610; 99202; J0665; J1100 ==

== ENCOUNTER 2023-08-28 15:42 | Outpatient (AMB) | payer MEDICARE, SELFPAY ==
[2023-08-28 16:02] VITALS: BP 102/70; PULSE 76; O2SAT 97; BMI 32.4
--- NOTE | 2023-08-28 16:02 | A.OFFPC_ITS ---
Vital Signs 08/28/23 16:02 Height 5 ft 1 in Weight 171 lb 6 oz BMI 32.4 BP 102/70 Blood Pressure Location Rt brachial Position Sitting Pulse 76 Pulse Source Pulse Oximeter Pulse Oximetry (%) 97 Oxygen Delivery Method Room Air Intake Visit Reasons: New patient-discuss general health Intake Note: Pt is here to est care Allergies No Known Allergies Allergy (Verified 08/28/23 16:45) Medication List - Last Reconciled 08/28/23 by MELO Wise buspirone 15 mg PO BID fenofibrate nanocrystallized 48 mg PO DAILY lisinopril-hydrochlorothiazide 20-12.5 mg 1 tab PO DAILY paroxetine HCl mg PO simvastatin 40 mg PO BEDTIME Tobacco use date assessed: 08/28/23 Fall risk assessment: No Falls in past year Last assessed Fall Risk: 08/28/23 Dental Screening Dental Screen Date: 08/28/23 Did you have a dental visit in the last 12 months?: Yes Did you have a dental problem in the last 6 months where you did not have access to dental care?: No Was dental information given to patient?: Patient has dentist HPI New patient-discuss general health HPI Details Pt is a new pt here, last PCP visit was in Apr 2023 (Dr. Liu). I will look for his last colon screen report ([facility]), pt thinks he is due in a couple of years. Pt denies any excessive dribbling after urination, incomplete bladder emptying, or nocturia. HTN: Denies any CP, SOB, dizziness, blurred vision, or edema. Pt does exercise on a regular basis. Encouraged him to work on his diet (portion control). BP is stable. NOTE: pt will try to gather his records from PCP in paper form. [facility] Medical History Prediabetes High cholesterol HTN (hypertension) Surgical History H/O hernia repair Social History Housing: House Patient Tobacco Use Status: Never used Tobacco e-Cigarette/Vaping Use: Never Used Second Hand Smoke Exposure: No Current occupational status: retired Cognitive needs: No Hearing needs: No Vision needs: No Questionnaire PHQ-9 Over the last 2 weeks, how often have you been bothered by any of the following problems? 1. Little interest or pleasure in doing things: not at all 2. Feeling down, depressed, or hopeless: not at all 3. Trouble falling or staying asleep, or sleeping too much: several days 4. Feeling tired or having little energy: several days 5. Poor appetite or overeating: several days 6. Feeling bad about yourself - or that you are a failure or have let yourself or your family down: not at all 7. Trouble concentrating on things, such as reading the newspaper or watching television: several days 8. Moving or speaking so slowly that other people could have noticed. Or the opposite - being so fidgety or restless that you have been moving around a lot more than usual: not at all 9. Thoughts that you would be better off or of hurting yourself in some way: not at all Total score: 4 Depression Screening Interpretation: Negative Depression Screening Done: Yes 69208 - PHQ-9 Billing: Yes Source: Developed by Drs. Ronen Santos, Maylin Nelson, Jonathan Garcia and colleagues, with an educational roberto from [employer]. Thrive Questionnaire Date Thrive assessed: 08/28/23 I am a: Patient What is your living situation today?: I have a steady place to live Within the past 12 months, did the food you bought not last and you didn't have the money to get more?: Never true Within the past 12 months, did you worry whether your food would run out before you got money to buy more?: Never true Do you have trouble paying for medicines?: No Do you have trouble getting transportation to medical appointments?: No Do you have trouble paying your heating and electricity bill?: No Do you have trouble taking care of your child, family member or friend?: No Do you have trouble with day-to-day activities such as bathing, preparing meals, shopping, managing finances, etc.?: No Are you currently unemployed and looking for a job?: No Are you interested in more education?: No Currently or been in a relationship where the following occur: no concerns reported THRIVE Score: 0 AUDIT C Alcohol Use Questionnaire (AUDIT-C) 1. How often do you have a drink containing alcohol?: Never 3. How often do you have six or more drinks on one occasion?: Never Total Score: 0 Score Reviewed/Action Taken: Yes ARBEN-7 AMB Questionnaire ARBEN-7 Date ARBEN - 7 assessed: 08/28/23 Feeling nervous, anxious, or on edge: 1 = Several days Not being able to stop or control worryin = Not at all Worrying too much about different things: 1 = Several days Trouble relaxin = Several days Being so restless that it is hard to sit still: 0 = Not at all Becoming easily annoyed or irritable: 1 = Several days Feeling afraid as if something awful might happen: 1 = Several days Total ARBEN-7 score (0-4 normal; 5-9 mild; 10-14 moderate; 15-21 severe): 5 Source: Developed by Drs. Ronen Santos, Maylin Nelson, Jonathan Garcia and colleagues, with an educational roberto from [employer]. Physical exam (Primary Care) Vital Signs: Last Vital Signs Pulse 76 08/28/23 16:02 BP 102/70 08/28/23 16:02 Pulse Ox 97 08/28/23 16:02 Oxygen Delivery Method Room Air 08/28/23 16:02 BMI result Body Mass Index 32.4 Tobacco/Smoking Status: Tobacco use Status Tobacco use date assessed 08/28/23 08/28/23 16:09 Patient Tobacco Use Status Never used Tobacco 08/28/23 16:09 e-Cigarette/Vaping Use Never Used 08/28/23 16:09 PHQ-9: PHQ-9 Score PHQ-9: Total score 4 08/28/23 16:12 Depression Screening Interpretation: Negative Thrive Assessment: Date of Thrive Assessment Date Thrive assessed 08/28/23 08/28/23 16:12 Currently or been in a relationship where the following occur: no concerns reported Resp Effort & Inspection: normal respiratory effort Cardio Rate: regular rate Rhythm: regular rhythm Heart sounds: S1 normal heart sound present, S2 normal heart sound present and no murmurs Extrem Right lower extremity: no edema Left lower extremity: no edema Psych Speech and movement: Normal speech and movement present Affect: normal affect Thought process: Normal thought process present Thought content: Normal thought content present Insight: Good insight present (Psych) Judgement: Good judgement present (Psych) Assessment and Plan Assessment & Plan (1) HTN (hypertension): Code(s): I10 - Essential (primary) hypertension Plan: labs ordered, continue current med regime, BP stable (2) Screening PSA (prostate specific antigen): Code(s): Z12.5 - Encounter for screening for malignant neoplasm of prostate Plan: lab Orders: Orders Comprehensive Clifford. Panel Fast Today I10 - Essential (primary) hypertension UA CC w/rflx Micro + Cult Today I10 - Essential (primary) hypertension Complete Blood Count Auto Diff Today I10 - Essential (primary) hypertension TSH reflex Free T4 Today I10 - Essential (primary) hypertension Lipid Panel Today I10 - Essential (primary) hypertension Prostate Specific Antigen Scr Today Z12.5 - Encounter for screening for malignant neoplasm of prostate Coding Level of Care Code New Pt Level 3 (43419) Diagnoses HTN (hypertension) I10 Screening PSA (prostate specific antigen) Z12.5
== END 2023-08-28 17:10 | disposition home or self-care (01) ==
PROVIDERS: PCP Nurse Practitioner Family; Visit Provider Nurse Practitioner Family
DX: I10 Essential (primary) hypertension (principal); Z12.5 Encounter for screening for malignant neoplasm of prostate
CPT/HCPCS: 99203

== ENCOUNTER 2023-08-29 08:05 | Outpatient (REF) | payer MEDICARE, SELFPAY ==
[2023-08-29 10:14] LABS: MANUAL DIFF FLAG NO
[2023-08-29 10:16] LABS: Appearance Urine Clear; Color Urine Yellow; Glucose Urine UA Negative (Negative); Leukocyte Esterase Urine Negative (Negative); Nitrite Urine Negative (Negative); Urine Blood Negative (Negative); Urine Ketones Negative (Negative); Urine Protein Negative (Neg-Trace)
[2023-08-29 10:26] LABS: Basophils Absolute Auto 0.1 X10*3/uL (0.0-0.2); Basophils Percent Auto 0.7 % (0-2); Eosinophils Absolute Auto 0.2 X10*3/uL (0.0-0.4); Eosinophils Percent Auto 2.8 % (0-4); Hematocrit 44.5 % (42.0-52.0); Hemoglobin 15.1 g/dl (14.0-18.0); Imm Gran Abs Auto 0.14 X10*3/uL (0.00-0.03); Imm Gran Pct Auto 1.6 % (0.0-0.4); Lymphocytes Absolute Auto 2.3 X10*3/uL (1.2-4.9); Lymphocytes Percent Auto 26.3 % (20-40); Mean Corpuscular HGB Conc 33.9 g/dl (31.0-36.0); Mean Corpuscular Hemoglobin 29.3 pg (27.0-33.0); Mean Corpuscular Volume 86.4 fL (80.0-98.0); Mean Platelet Volume 11.9 fL (9.4-12.4); Monocytes Absolute Auto 0.6 X10*3/uL (0.1-1.2); Monocytes Percent Auto 6.7 % (2-11); Neutrophils Absolute Auto 5.4 x10*3/uL (2.0-8.3); Neutrophils Percent Auto 61.9 % (45-73); Platelet Count 226 X10*3/uL (160-400); Red Blood Count 5.15 X10*6/uL (4.60-5.80); Red Cell Distribution Width 12.6 % (11.0-16.0); White Blood Count 8.7 X10*3/uL (4.8-10.8)
[2023-08-29 11:18] LABS: Alanine Aminotransferase 24 U/L (0-40); Albumin Level 4.4 g/dL (3.5-5.0); Alkaline Phosphatase 67 U/L (39-117); Anion Gap 15 (12-20); Aspartate Amino Transferase 18 U/L (5-37); Bilirubin Total 0.4 mg/dL (0.0-1.0); Blood Urea Nitrogen 17 mg/dL (9-16); Calcium 10.3 mg/dL (8.4-10.2); Carbon Dioxide 28 mmol/L (22-29); Chloride 106 mmol/L (96-108); Cholesterol 186 mg/dL (<200); Estimated Glomerular Filt Rate > 60; Glucose Fasting 142 mg/dL (60-99); HDL Cholesterol 53 mg/dL (>40); LDL Cholesterol Calculated 106 mg/dL (<100); Potassium 4.1 mmol/L (3.3-5.1); Sodium 145 mmol/L (135-145); Triglycerides 138 mg/dL (<150)
[2023-08-29 11:19] LABS: Prostate Specific Antigen Scr 1.85 ng/mL (<0.05-4.0)
[2023-08-29 11:21] LABS: TSH reflex Free T4 2.93 uIU/mL (0.32-4.0)
== END 2023-08-29 08:06 | disposition home or self-care (01) ==
LOC: HO.HMGCLDS 08:05
PROVIDERS: PCP Nurse Practitioner Family; Visit Provider Nurse Practitioner Family
DX: I10 Essential (primary) hypertension (principal); Z12.5 Encounter for screening for malignant neoplasm of prostate
CPT/HCPCS: 36415; 80053; 80061; 81003; 84153; 84443; 85025

== ENCOUNTER 2023-09-11 08:45 | Outpatient (REF) | payer MEDICARE, SELFPAY ==
[2023-09-11 12:11] LABS: Parathyroid Hormone Intact 24.9 pg/mL (8.7-77.1)
[2023-09-15 15:13] LABS: Calcium, Ionized 5.6 mg/dL (4.7-5.5)
== END 2023-09-11 08:46 | disposition home or self-care (01) ==
LOC: HO.HMGCLDS 08:45
PROVIDERS: PCP Nurse Practitioner Family; Visit Provider Nurse Practitioner Family
DX: E83.52 Hypercalcemia (principal)
CPT/HCPCS: 36415; 82330; 83970

== ENCOUNTER 2023-10-30 08:06 | Outpatient (AMB) | payer MEDICARE, BC, SELFPAY ==
[2023-10-30 08:50] VITALS: BP 118/80; PULSE 82; TEMP 36.6; O2SAT 96; BMI 32.9
--- NOTE | 2023-10-30 08:50 | MHC.OFFWIV ---
Intake Vital Signs 10/30/23 08:50 Height 5 ft 1 in Weight 174 lb BMI 32.9 BP 118/80 Blood Pressure Location Lt brachial Position Sitting Pulse 82 Pulse Source Pulse Oximeter Temp 97.9 F Temp Source Temporal Artery Scan Pulse Oximetry (%) 96 Oxygen Delivery Method Room Air Intake Visit Reasons: EP LT foot ?Gout Intake Note: pt is here today for lft foot gout started 2 days ago Patient Tobacco Use Status: Never used Tobacco Allergies No Known Allergies Allergy (Verified 10/30/23 09:03) Medication List - Last Reconciled 10/30/23 by EMMY Alexandra buspirone 15 mg PO BID fenofibrate nanocrystallized 48 mg PO DAILY lisinopril-hydrochlorothiazide 20-12.5 mg 1 tab PO DAILY paroxetine HCl mg PO simvastatin 40 mg PO BEDTIME Do you need a note to return to daycare/school/sports/work: No HPI HPI Comments History of Present Illness Details Patient is a 67-year-old male in today with a sick visit. Patient has a past medical history significant for hypertension, hyperlipidemia, anxiety and depression and gout. Patient presents today with pain on the left foot dorsal aspect. Patient states that this feels and looks like a gout flare up that he has had in the past. Denies any trauma to the area. Patient is not currently taking any medication for this. He has full range of motion, pulses are +2. Patient is able to bear weight on the affected extremity, states that the most difficult thing is trying to put on his shoe. Will obtain x-ray left foot, will obtain uric acid. Will send patient meloxicam and prednisone. [facility] Medical History Prediabetes High cholesterol HTN (hypertension) Surgical History H/O hernia repair Social History Housing: House Patient Tobacco Use Status: Never used Tobacco e-Cigarette/Vaping Use: Never Used Second Hand Smoke Exposure: No Current occupational status: retired Cognitive needs: No Hearing needs: No Vision needs: No Review of Systems Const All systems reviewed & are unremarkable except as noted in HPI and below Card Denies chest pain and Denies dyspnea Resp Denies dyspnea Musc Reports arthralgias (Left foot) Skin/Breast Reports other (Redness) Physical Exam Vital Signs: BMI result Body Mass Index 32.9 Const Other: Appearance: Alert.? Oriented X3.? No acute distress.? Head: Normocephalic, atraumatic, no step-offs or deformities Neck: Normal inspection.? Neck supple.? CVS: Normal heart rate and rhythm.? Pulses normal.? Skin: Erythema, dorsal aspect of left foot. Extremities: No left foot edema. Full ROM. Patient able to bare weight on extremity. Neuro: Oriented X 3.? No motor deficit.? Assessment & Plan Assessment & Plan (1) Gout: Comment: Will obtain x-ray, will obtain uric acid. Will give patient meloxicam and prednisone. Code(s): M10.9 - Gout, unspecified Qualifiers: Gout site: foot Gout etiology: unspecified cause Chronicity: acute Laterality: left Qualified Code(s): M10.9 - Gout, unspecified Plan: Take your medications as prescribed. If you were prescribed antibiotics today, it is important that you take your medication to their entirety, do not skip any doses, do not finish them early. Follow-up with your primary care provider this week. Return to the emergency department with new or worsening symptoms. Such as fevers, chills, chest pain, shortness of breath, nausea, vomiting, dizziness, headache, vision changes, lethargy In case of emergency call 911 Plan Follow-up with PCP. Orders: Orders XR foot LT min 3V Today M79.672 - Pain in left foot Uric Acid Today M10.9 - Gout, unspecified Medications: New meloxicam Do not combine with other NSAIDS 15 mg PO DAILY 14 tabs 0RF prednisone 20 mg PO BID 10 tabs 0RF Coding Level of Care Code Est Pt Level 3 (36191) Diagnoses Acute gout of left foot, unspecified cause M10.9 Gout site: foot Gout etiology: unspecified cause Chronicity: acute Laterality: left Time Spent (min) 21
== END 2023-10-30 11:21 | disposition home or self-care (01) ==
PROVIDERS: PCP Nurse Practitioner Family; Visit Provider Nurse Practitioner Primary Care
DX: M10.9 Gout, unspecified (principal)
CPT/HCPCS: 99213

== ENCOUNTER 2023-10-30 09:11 | Outpatient (REF) | payer MEDICARE, BC, SELFPAY ==
--- NOTE | ~2023-10-30 | XR_ITS ---
EXAMINATION: XR FOOT, LEFT CLINICAL INFORMATION: Pain in left foot. COMPARISON: None available. TECHNIQUE: AP, lateral, and oblique views of the left foot. FINDINGS: Mild degenerative changes in the first metatarsophalangeal joint. Irregularity of mixed sclerotic and cystic lucencies along the medial aspect of first metatarsal head. Alignment maintained. Tiny punctate calcification in the soft tissues lateral to the first proximal phalanx shaft. Cortical irregularity along the medial distal aspect of the first proximal phalanx of uncertain age and etiology. Minimal plantar calcaneal spur formation. XR/XR foot LT min 3V IMPRESSION: 1. Mild degenerative changes first metatarsophalangeal joint. 2. Cortical irregularity along the medial distal aspect of the first proximal phalanx of uncertain age and etiology. 3. Recommend follow up imaging in 10-14 days if fracture is suspected.
[2023-10-30 13:54] LABS: Uric Acid 6.5 mg/dL (3.4-7.0)
== END 2023-10-30 09:12 | disposition home or self-care (01) ==
LOC: HO.HMGCX 09:11
PROVIDERS: PCP Nurse Practitioner Family; Visit Provider Nurse Practitioner Primary Care
DX: M79.672 Pain in left foot (principal); M10.9 Gout, unspecified
CPT/HCPCS: 36415; 73630; 84550

== ENCOUNTER 2023-11-14 08:02 | Outpatient (AMB) | payer MEDICARE, BC, SELFPAY ==
--- NOTE | 2023-11-14 08:03 | AM.OFFWIN_ITS ---
Intake Vital Signs 11/14/23 08:04 Height 5 ft 1 in Weight 173 lb 2 oz BMI 32.7 BP 120/82 Blood Pressure Location Rt brachial Position Sitting Pulse 88 Pulse Source Pulse Oximeter Temp 97.9 F Temp Source Oral Pulse Oximetry (%) 98 Oxygen Delivery Method Room Air Intake Visit Reasons: EP red bumps right arm Intake Note: Pt presents to the office today for c/o red bumps on righ arm that started the beginning of this week. He states his arm got very itchy and noticed a few red spots on his forearm. Patient Tobacco Use Status: Never used Tobacco Allergies No Known Allergies Allergy (Verified 11/14/23 08:06) HPI HPI Comments History of Present Illness Details This is a 67-year-old male with a past medical history of hypertension and hyperlipidemia presenting for evaluation of red itchy lesions on his right forearm that he 1st noticed on Friday. Patient describes the lesions as itchy a nd prickly in nature and has not noted any new lesions on his upper arm, chest, back or neck since Friday. Patient has used Benadryl topically with relief of the itching. He denies having any fevers, chills, discharge from these lesions or any similar lesions on family members or close contacts. Patient states he mowed the lawn yesterday however denies any yard work or other contacts last weekend. [facility] Medical History Prediabetes High cholesterol HTN (hypertension) Surgical History H/O hernia repair Social History Housing: House Patient Tobacco Use Status: Never used Tobacco e-Cigarette/Vaping Use: Never Used Second Hand Smoke Exposure: No Current occupational status: retired Cognitive needs: No Hearing needs: No Vision needs: No Review of Systems Const All systems reviewed & are unremarkable except as noted in HPI and below Eyes Reports no additional complaints GI Reports no additional complaints Skin/Breast Reports pruritus, Reports lesions, Reports non-healing lesions, Reports erythema, Reports rash, Denies skin pain and Denies skin ulcer Neuro Reports no additional complaints and Denies burning sensations Psych Reports no additional complaints Physical Exam Vital Signs: Last Vital Signs Temp 97.9 F 11/14/23 08:04 Pulse 88 11/14/23 08:04 BP 120/82 11/14/23 08:04 Pulse Ox 98 11/14/23 08:04 Oxygen Delivery Method Room Air 11/14/23 08:04 BMI result Body Mass Index 32.7 Const General: cooperative, healthy appearing, comfortable, no acute distress, well developed, alert, awake and Physically active Nutritional Appearance: overweight Orientation/consciousness: patient oriented x3 Limitations: no limitations Skin Other: There are 2 lesions as described below on the volar surface of the right forearm, no lesions are noted on the proximal right arm, anterior chest, poste rior chest or cervical region Rashes: rashes noted (2 lesions of grouped vescicles/papules on erythematous base <2cm each) right volar forearm Neuro General: patient oriented x3 Psych Appearance: grossly normal Mental Status: mental status grossly normal Insight: Good insight present (Psych) Judgement: Good judgement present (Psych) Assessment & Plan Assessment & Plan (1) Contact dermatitis: Comment: Patient's presentation is most consistent with a contact dermatitis; herpes zoster is considered however there are no additional lesions noted and the patient states that these lesions have been itchy and unchanged since Friday. Patient will be discharged with a topical steroid to use for the next 2 weeks. Code(s): L25.9 - Unspecified contact dermatitis, unspecified cause Qualifiers: Contact dermatitis type: irritant Contact dermatitis trigger: unspecified trigger Qualified Code(s): L24.9 - Irritant contact dermatitis, unspecified cause Plan: Betamethasone 0.05% topical cream b.i.d. x2 weeks. Medications: New betamethasone dipropionate 0.05% 1 appl topical BID 2 weeks 15 grams 1RF skin irritation Coding Level of Care Code Est Pt Level 3 (87025) Diagnoses Irritant contact dermatitis, unspecified trigger L24.9 Contact dermatitis type: irritant Contact dermatitis trigger: unspecified trigger Time Spent (min) 20
[2023-11-14 08:04] VITALS: BP 120/82; PULSE 88; TEMP 36.6; O2SAT 98; BMI 32.7
== END 2023-11-14 08:35 | disposition home or self-care (01) ==
PROVIDERS: PCP Nurse Practitioner Family; Visit Provider Physician Assistant
DX: L24.9 Irritant contact dermatitis, unspecified cause (principal)
CPT/HCPCS: 99213

== ENCOUNTER 2023-11-18 08:08 | Outpatient (AMB) | payer MEDICARE, BC, SELFPAY ==
[2023-11-18 08:10] VITALS: BP 112/70; PULSE 75; TEMP 36.6; O2SAT 97; BMI 32.7
--- NOTE | 2023-11-18 08:10 | AM.OFFWIN_ITS ---
Intake Vital Signs 11/18/23 08:10 Height 5 ft 1 in Weight 173 lb BMI 32.7 BP 112/70 Blood Pressure Location Rt brachial Position Sitting Pulse 75 Pulse Source Pulse Oximeter Temp 97.9 F Temp Source Oral Pulse Oximetry (%) 97 Intake Visit Reasons: EP Soreness in chest hand n wrist Intake Note: pt is here for soreness in chest, hand and wrist. Patient states he was here for a rash last week and states where the rash is, is where the soreness is. Patient Tobacco Use Status: Never used Tobacco Allergies No Known Allergies Allergy (Verified 11/18/23 08:28) Medication List - Last Reconciled 11/18/23 by EMMY Alexandra betamethasone dipropionate 0.05% 1 appl topical BID 2 weeks buspirone 15 mg PO BID fenofibrate nanocrystallized 48 mg PO DAILY lisinopril-hydrochlorothiazide 20-12.5 mg 1 tab PO DAILY paroxetine HCl mg PO simvastatin 40 mg PO BEDTIME Do you need a note to return to daycare/school/sports/work: Yes HPI HPI Comments History of Present Illness Details Patient is a 67-year-old male in today for a sick visit. He was recently seen in our walk-in 4 days prior for a rash that developed on his right forearm on 2 separate areas, about dime size and circumference. Patient states the rash developed us to he was out in his garden. Patient was given topical steroid cream betamethasone, which is had little effect. He states that the rash is not improved since Friday even after using the cream. Denies any tingling or numbness to the area. Reports little pain. Denies discharge [facility] Medical History Prediabetes High cholesterol HTN (hypertension) Surgical History H/O hernia repair Social History Housing: House Patient Tobacco Use Status: Never used Tobacco e-Cigarette/Vaping Use: Never Used Second Hand Smoke Exposure: No Current occupational status: retired Cognitive needs: No Hearing needs: No Vision needs: No Review of Systems Const All systems reviewed & are unremarkable except as noted in HPI and below Physical Exam Vital Signs: Last Vital Signs Temp 97.9 F 11/18/23 08:10 Pulse 75 11/18/23 08:10 BP 112/70 11/18/23 08:10 Pulse Ox 97 11/18/23 08:10 BMI result Body Mass Index 32.7 Skin Rashes: rashes noted (No surrounding erythema, no discharge.) right mid forearm Assessment & Plan Assessment & Plan (1) Contact dermatitis: Comment: Patient has what appears to be contact dermatitis that is not improving topical steroid. Patient will be placed on prednisone to be taken as directed. No signs of infection at this time. Patient has been instructed to follow-up if no improvement in rash in 2-3 days. He has also been educated on signs of worsening symptoms and when to report to the walk-in or when to present to the ED Code(s): L25.9 - Unspecified contact dermatitis, unspecified cause Qualifiers: Contact dermatitis type: irritant Contact dermatitis trigger: unspecified trigger Qualified Code(s): L24.9 - Irritant contact dermatitis, unspecified cause Plan: Take your medications as prescribed. If you were prescribed antibiotics today, it is important that you take your medication to their entirety, do not skip any doses, do not finish them early. Follow-up with your primary care provider this week. Return to the emergency department with new or worsening symptoms. Such as fevers, chills, chest pain, shortness of breath, nausea, vomiting, dizziness, headache, vision changes, lethargy In case of emergency call 911 Plan Follow-up with PCP Medications: New prednisone 40 mg (2 x 20 mg) PO DAILY 10 tabs 0RF Coding Level of Care Code Est Pt Level 3 (86479) Diagnoses Irritant contact dermatitis, unspecified trigger L24.9 Contact dermatitis type: irritant Contact dermatitis trigger: unspecified trigger Time Spent (min) 24
== END 2023-11-18 08:51 | disposition home or self-care (01) ==
PROVIDERS: PCP Nurse Practitioner Family; Visit Provider Nurse Practitioner Primary Care
DX: L24.9 Irritant contact dermatitis, unspecified cause (principal)
CPT/HCPCS: 99213

== ENCOUNTER 2024-04-09 10:33 | Outpatient (AMB) | payer MEDICARE, BC, SELFPAY ==
--- NOTE | 2024-04-09 10:34 | A.OFFVIS_ITS ---
Intake Visit Reasons: Inj-Left knee inj-last injection 06/19/23 Intake Note: Reid is a 68 year old male who presents today for a left knee cortisone injection. Date of last left knee injection was 06/19/2023. Allergies No Known Allergies Allergy (Verified 04/09/24 10:35) HPI HPI Inj-Left knee inj-last injection 06/19/23: Details: Reid is a 68 year old male who presents today for a left knee cortisone injection. Date of last left knee injection was 06/19/2023. He is actually complaining of bilateral lower back pain with bilateral radiating numbness and tingling into his knees and feet. He states the knee injection was questionably helpful. It is unclear if the knee is actually bothering him now. [facility] Medical History Prediabetes High cholesterol HTN (hypertension) Surgical History H/O hernia repair Social History Housing: House Patient Tobacco Use Status: Never used Tobacco e-Cigarette/Vaping Use: Never Used Second Hand Smoke Exposure: No Current occupational status: retired Cognitive needs: No Hearing needs: No Vision needs: No Physical Exam Const General: no acute distress, alert and awake Orientation/consciousness: patient oriented x3 HEENT Head: Yes normocephalic and Yes atraumatic Eyes EOM: EOMs intact bilaterally Resp Effort & Inspection: normal respiratory effort and able to speak in complete sentences Cardio Jugular venous distension: no JVD Skin General skin exam: turgor normal Rashes: no rashes Neuro General: patient oriented x3 Extrem Other: Left knee does not reproduce any discomfort when I palpate or manipulated. There is full range of motion. Psych Appearance: grossly normal Affect: normal affect Attitude: cooperative Assessment & Plan Assessment & Plan (1) Low back pain potentially associated with radiculopathy: Code(s): M54.50 - Low back pain, unspecified Category: Medical Plan: This is a 68-year-old gentleman with low back pain potentially associated with radiculopathy. I recommend a referral to our spine colleagues. Orders: Referrals Pain Management Referral M54.50 - Low back pain, unspecified Coding Level of Care Code Est Pt Level 3 (97718) Diagnoses Low back pain potentially associated with radiculopathy M54.50
== END 2024-04-09 12:34 | disposition home or self-care (01) ==
PROVIDERS: PCP Nurse Practitioner Family; Visit Provider Orthopaedic Surgery
DX: M54.50 Low back pain, unspecified (principal)
CPT/HCPCS: 99213

== ENCOUNTER → 2024-04-09 10:33 | Outpatient (BNVA) | payer MEDICARE, BC, SELFPAY | PROVIDERS: PCP Nurse Practitioner Family; Visit Provider Orthopaedic Surgery | DX: M54.50 Low back pain, unspecified (principal) | CPT/HCPCS: 99212 ==

== ENCOUNTER 2024-04-19 08:49 | Outpatient (AMB) | payer MEDICARE, BC, SELFPAY ==
--- NOTE | 2024-04-19 08:53 | AM.OFFVISMDC ---
Intake Vital Signs 04/19/24 08:54 Height 5 ft 1 in Weight 171 lb BMI 32.3 BP 118/70 Blood Pressure Location Rt brachial Position Sitting Pulse 76 Pulse Source Pulse Oximeter Pulse Oximetry (%) 98 Intake Visit Reasons: AWV G0438 Intake Note: pt is here for MWV, packet completed. Accompanied by: Self / Same As Patient Allergies No Known Allergies Allergy (Verified 04/19/24 09:55) Medication List - Last Reconciled 04/19/24 by MELO Wise buspirone 15 mg PO BID fenofibrate nanocrystallized 48 mg PO DAILY lisinopril-hydrochlorothiazide 20-12.5 mg 1 tab PO DAILY paroxetine HCl mg PO simvastatin 40 mg PO BEDTIME Do you need a note to return to daycare/school/sports/work: No HPI AWV G0438 HPI Details Pt is here for an AWV. Denies fever, chills, and dizziness. [place] of care in scan pile. PPP will be scanned in chart and copy will be given to pt. Will try to track down pt's last colon screen. HPI Comments History of Present Illness Details OV: Dyslipidemia: Pt is on simvastatin 40mg. Will order labs. [facility] Medical History Prediabetes High cholesterol HTN (hypertension) Surgical History H/O hernia repair Social History Housing: House Patient Tobacco Use Status: Never used Tobacco e-Cigarette/Vaping Use: Never Used Second Hand Smoke Exposure: No Current occupational status: retired Cognitive needs: No Hearing needs: No Vision needs: No Questionnaire Medicare Wellness Checkup [age] What gender do you identify with?: male During the past 4 weeks, how much have you been bothered by emotional problems such as feeling anxious, depressed, irritable, sad or downhearted, and blue?: slightly During the past 4 weeks, has your physical & emotional health limited your social activities with family, friends, neighbors, or groups?: slightly During the past 4 weeks, how much bodily pain have you generally had?: mild pain During the past 4 weeks, was someone available to help you if you needed & wanted help?: yes, quite a bit During the past 4 weeks, what was the hardest physical activity you could do for at least 2 minutes?: heavy Can you get to places out of walking distance without help? (For eg., can you travel alone on buses, taxis or drive your car?): Yes Can you go shopping for groceries or clothes without someone's help?: Yes Can you prepare your own meals?: Yes Can you do your housework without help?: Yes Because of any health problems, do you need the help of another person with your personal care needs such as eating, bathing, dressing or getting around the house?: No Can you handle your own money without help?: Yes During the past 4 weeks, how would you rate your health in general?: good During the past 4 weeks how have things been going for you?: pretty well Are you having difficulties driving your car?: no Do you always fasten your seat belt when you are in a car?: yes, usually During past 4 weeks, have you been bothered by the following: seldom: Falling or dizzy when standing up and Trouble eating well?, sometimes: Problems using the telephone? and Tiredness or fatigue? and often: Sexual problems? Have you fallen 2 or more times in the past year?: No Are you afraid of falling?: No Are you a smoker?: no During the past 4 weeks, how many drinks of wine, beer, or other alcoholic beverages did you have?: no alcohol at all Do you exercise for about 20 minutes 3 or more times a week?: yes, most of the time Have you been given information to help with the following?: no: Hazards in your house that might hurt you? and no: Keeping track of your medications? How often do you have trouble taking medicines the way you have been told to take them?: I always take medicine as prescribed How confident are you that you can control & manage most of your health problems?: somewhat confident What is your race?: White Mini Mental State Exam (MMSE) Orientation What is the (year) (season) (date) (day) (month)?: year, season, date, day and month Where are we (state) (county) (town or city) (hospital) (floor)?: state, county, town or city, hospital/clinic and floor Registration Name of 3 unrelated objects clearly and slowly, then ask patient to repeat all 3 of them. (1st repeat determines score. Make sure they can repeat all three): object 1, object 2 and object 3 Attention & Calculation (CHOOSE ONE) Spell WORLD backwards (DLROW): 4 letters Recall Ask patient to repeat the 3 items from question #3.: object 1, object 2 and object 3 Language Show patient a wristwatch & ask what it is. Repeat for pencil.: watch and pencil Ask the patient to repeat the phrase 'No ifs, ands, or buts' after you.: correct Ask the patient to 'take a piece of paper with their right hand' 'fold paper in half' 'place paper on floor': take paper in right hand, fold paper in half and place paper on floor Print the sentence 'CLOSE YOUR EYES' on a piece. If patient actually closes eyes then score.: followed written direction Give patient a blank piece of paper & ask to write a sentence. Score if it contains a noun & verb.: sentence contains subject and verb Ask patient to copy figure of intersecting pentagons exactly. Score if all 10 angles & 2 intersects are included.: all 10 angles present & 2 are intersected Score Score: 29 Activity of Daily Living Bathing - sponge bath, tub bath or shower: receives no assistance (gets in/out by self, if usual bathing means Dressing - getting clothes from closets & drawers, including inner/outer garments & fasteners.: gets clothes & gets completely dressed without help Toileting - going to the 'toilet room' for urine/bowel elimination & cleaning self/arranging clothes: goes to toilet room, cleans self, arranges clothes without help Transfer: moves in & out of bed and chair without help (may use support object) Continence: controls urination/bowel movements completely by self Feeding: feeds self without help Total Score: 0 Information obtained from: patient Using telephone: independent Traveling: independent Shopping: independent Preparing meals: independent Housework: independent Taking medicine: independent Managing money: independent PHQ-9 Over the last 2 weeks, how often have you been bothered by any of the following problems? 1. Little interest or pleasure in doing things: not at all 2. Feeling down, depressed, or hopeless: not at all 3. Trouble falling or staying asleep, or sleeping too much: several days 4. Feeling tired or having little energy: several days 5. Poor appetite or overeating: several days 6. Feeling bad about yourself - or that you are a failure or have let yourself or your family down: not at all 7. Trouble concentrating on things, such as reading the newspaper or watching television: several days 8. Moving or speaking so slowly that other people could have noticed. Or the opposite - being so fidgety or restless that you have been moving around a lot more than usual: not at all 9. Thoughts that you would be better off or of hurting yourself in some way: not at all Total score: 4 Depression Screening Interpretation: Negative Depression Screening Done: Yes 40692 - PHQ-9 Billing: Yes Source: Developed by Drs. Ronen Santos, Maylin Nelson, Jonathan Garcia and colleagues, with an educational roberto from [employer]. Review of Systems Const Reports as per HPI Physical Exam Vital Signs: Last Vital Signs Pulse 76 04/19/24 08:54 BP 118/70 04/19/24 08:54 Pulse Ox 98 04/19/24 08:54 BMI result Body Mass Index 32.3 Const General: cooperative Nutritional Appearance: obese Orientation/consciousness: patient oriented x3 Resp Effort & Inspection: normal respiratory effort Auscultation: clear to auscultation bilaterally Cardio Rate: regular rate Rhythm: regular rhythm Heart sounds: S1 normal heart sound present and S2 normal heart sound present Neuro Other: - romberg, can tandem walk, can walk and turn, can rise from sitting to standing, passed whisper test General: patient oriented x3 Psych Appearance: grossly normal Mental Status: mental status grossly normal Speech and movement: Normal speech and movement present Affect: normal affect Attitude: cooperative Thought process: Normal thought process present Thought content: Normal thought content present Insight: Good insight present (Psych) Judgement: Good judgement present (Psych) Immunizations pneumoc 20-sukh conj-dip cr(PF) 0.5 mL IM syringe Performing Provider: MELO Wise Performing Location: [facility] [place] [facility] Administered by: Ryan Philip CMA on 04/19/24 09:29 Dose Route Admin Location Dispensed Lot Number Expiration Date NDC Paper Hanger 0.5 mL IM Left Deltoid 0.5 mL [id number] 06/25/25 7474-7552-36 WYETH/PFIZER VIS Given Date VIS Provided VIS Publication Date 04/19/24 Single Vaccine 21 Eligibility Eligibility Date Funding Source Not VFC Eligible 04/19/24 Private Assessment & Plan Assessment & Plan (1) Dyslipidemia: Code(s): E78.5 - Hyperlipidemia, unspecified Plan: labs ordered, on simvastatin (2) Encounter for annual wellness visit (AWV) in Medicare patient: Code(s): Z00.00 - Encounter for general adult medical examination without abnormal findings Plan The patient agreed to the use of a medical office professional instructor for this encounter. Scribed for MELO Mims by Eboni Davila medical office professional instructor, on 04/19/2024 at 09:10 EST. Orders: Orders Pneumococcal 20 Immunization Today Z23 - Encounter for immunization Complete Blood Count Auto Diff Today E78.5 - Hyperlipidemia, unspecified Comprehensive [place]. Panel Fast Today E78.5 - Hyperlipidemia, unspecified TSH reflex Free T4 Today E78.5 - Hyperlipidemia, unspecified UA CC w/rflx Micro + Cult Today E78.5 - Hyperlipidemia, unspecified Lipid Panel Today E78.5 - Hyperlipidemia, unspecified Quality Reporting (2019) Depression/Bipolar (159/160/161/177) PHQ-9: Total score: 4 Coding Level of Care Code Medicare First (G0438) Est Pt Level 3 (86729) Diagnoses Dyslipidemia E78.5 Encounter for annual wellness visit (AWV) in Medicare patient Z00.00 CPT Codes Advance Care Planning - Time spent: 1-15 minutes, on File ([id number]) Advance Care Planning Forms completed: Health Care Proxy (pt will bring in form), MOLST (pt will bring in) and Living will (done, according to pt) Time spent: 1-15 minutes, on File Actual minutes spent: 15
[2024-04-19 08:54] VITALS: BP 118/70; PULSE 76; O2SAT 98; BMI 32.3
== END 2024-04-19 09:42 | disposition home or self-care (01) ==
PROVIDERS: PCP Nurse Practitioner Family; Visit Provider Nurse Practitioner Family
DX: Z00.00 Encounter for general adult medical examination without abnormal findings (principal); E78.5 Hyperlipidemia, unspecified; Z23 Encounter for immunization

== ENCOUNTER → 2024-04-19 08:49 | Outpatient (BNVA) | payer MEDICARE, BC, SELFPAY | PROVIDERS: PCP Nurse Practitioner Family; Visit Provider Nurse Practitioner Family ==

== ENCOUNTER 2024-04-19 09:30 | Outpatient (REF) | payer MEDICARE, BC, SELFPAY ==
[2024-04-19 13:00] LABS: MANUAL DIFF FLAG NO
[2024-04-19 13:11] LABS: Basophils Absolute Auto 0.1 X10*3/uL (0.0-0.2); Basophils Percent Auto 0.6 % (0-2); Eosinophils Absolute Auto 0.3 X10*3/uL (0.0-0.4); Eosinophils Percent Auto 2.7 % (0-4); Hematocrit 45.3 % (42.0-52.0); Hemoglobin 15.2 g/dl (14.0-18.0); Imm Gran Abs Auto 0.11 X10*3/uL (0.00-0.03); Imm Gran Pct Auto 1.2 % (0.0-0.4); Lymphocytes Absolute Auto 2.5 X10*3/uL (1.2-4.9); Mean Corpuscular HGB Conc 33.6 g/dl (31.0-36.0); Mean Corpuscular Hemoglobin 28.7 pg (27.0-33.0); Mean Corpuscular Volume 85.5 fL (80.0-98.0); Monocytes Absolute Auto 0.7 X10*3/uL (0.1-1.2); Monocytes Percent Auto 7.1 % (2-11); Neutrophils Absolute Auto 5.7 x10*3/uL (2.0-8.3); Neutrophils Percent Auto 61.4 % (45-73); Platelet Count 231 X10*3/uL (160-400); Red Cell Distribution Width 12.3 % (11.0-16.0); White Blood Count 9.3 X10*3/uL (4.8-10.8)
[2024-04-19 13:31] LABS: Alanine Aminotransferase 26 U/L (0-40); Albumin Level 4.6 g/dL (3.5-5.0); Alkaline Phosphatase 66 U/L (39-117); Anion Gap 14 (12-20); Aspartate Amino Transferase 21 U/L (5-37); Bilirubin Total 0.6 mg/dL (0.0-1.0); Blood Urea Nitrogen 15 mg/dL (9-16); Calcium 10.3 mg/dL (8.4-10.2); Carbon Dioxide 26 mmol/L (22-29); Chloride 105 mmol/L (96-108); Cholesterol 131 mg/dL (<200); Estimated Glomerular Filt Rate > 60; Glucose Fasting 128 mg/dL (60-99); HDL Cholesterol 40 mg/dL (>40); LDL Cholesterol Calculated 70 mg/dL (<100); Potassium 3.7 mmol/L (3.3-5.1); Sodium 141 mmol/L (135-145); Triglycerides 108 mg/dL (<150)
[2024-04-19 13:48] LABS: TSH reflex Free T4 1.88 uIU/mL (0.32-4.0)
[2024-04-19 13:55] LABS: Appearance Urine Cloudy; Color Urine Yellow; Glucose Urine UA Negative (Negative); Leukocyte Esterase Urine Negative (Negative); Nitrite Urine Negative (Negative); PH 8.5 (5.0-9.0); Urine Blood Negative (Negative); Urine Ketones Negative (Negative); Urine Protein Negative (Neg-Trace)
== END 2024-04-19 09:31 | disposition home or self-care (01) ==
LOC: HO.HMGCLDS 09:30
PROVIDERS: PCP Nurse Practitioner Family; Visit Provider Nurse Practitioner Family
DX: Z23 Encounter for immunization (principal); E78.5 Hyperlipidemia, unspecified
CPT/HCPCS: 36415; 80053; 80061; 81003; 84443; 85025; 90471; 90677; 99212

== ENCOUNTER 2024-04-28 08:52 | Outpatient (AMB) | payer MEDICARE, BC, SELFPAY ==
[2024-04-28 09:09] VITALS: BP 120/70; PULSE 85; O2SAT 96; BMI 32.5
--- NOTE | 2024-04-28 09:09 | A.OFFVIS_ITS ---
Vital Signs 04/28/24 09:09 Height 5 ft 1 in Weight 172 lb BMI 32.5 BP 120/70 Blood Pressure Location Rt brachial Position Sitting Pulse 85 Pulse Source Pulse Oximeter Pulse Oximetry (%) 96 Oxygen Delivery Method Room Air Intake Visit Reasons: Low back pain Allergies No Known Allergies Allergy (Verified 04/28/24 09:09) Medication List - Last Reconciled 04/28/24 by Angela Storm blood sugar diagnostic (FreeStyle Lite Strips) test blood sugar once a day blood-glucose meter (FreeStyle Lite Meter kit) As directed buspirone 15 mg PO BID fenofibrate nanocrystallized 48 mg PO DAILY lancets (FreeStyle Lancets) Test blood sugar once a day lisinopril-hydrochlorothiazide 20-12.5 mg 1 tab PO DAILY paroxetine HCl mg PO simvastatin 40 mg PO BEDTIME HPI Comments Details: Reid is a very pleasant 68-year-old male who presents the office today for evaluation and management of his chronic lower back pain. He has been suffering with this pain for approximately 1 year. Evaluated by Orthopedics 10 months ago and was given a steroid injections to the left knee. He states pain has significantly diminished since then. Endorses left lower back pain with radiation into the thigh Pain is worse at night. Worse with lying down. Improved with activity Patient does home exercise program and walks daily Denies any recent imaging Taking ibuprofen, using lidocaine patches and topical ointment with improvement Pain today is rated a 1/10, intermittent. He reports today the pain is 1/10. Ten months ago pain was an 8/10 but has progressively improved. Now pain is very mild. He still wanted to establish care here in case the pain returns or worsens. Denies radiation of the pain to the foot, denies burning, numbness, tingling of either lower extremity Denies history of chiropractor, acupuncture, massage or previous injections to the back Denies red flag symptoms including loss of bowel, bladder or saddle anesthesia. In terms of muscle damage condition is described as mild, aching Pain is negatively impacting patient's general activity, sleeping Denies implantable devices, pacemaker, defibrillator Denies current use of nicotine, tobacco, alcohol or illicit substances [facility] Medical History Prediabetes High cholesterol HTN (hypertension) Surgical History H/O hernia repair Social History Housing: House Patient Tobacco Use Status: Never used Tobacco e-Cigarette/Vaping Use: Never Used Second Hand Smoke Exposure: No Current occupational status: retired Cognitive needs: No Hearing needs: No Vision needs: No Review of Systems Const All systems reviewed & are unremarkable except as noted in HPI and below Physical Exam Vital Signs: Last Vital Signs Pulse 85 04/28/24 09:09 BP 120/70 04/28/24 09:09 Pulse Ox 96 04/28/24 09:09 Oxygen Delivery Method Room Air 04/28/24 09:09 BMI result Body Mass Index 32.5 General: awake, alert, oriented. Answers questions appropriately. Fully engaged in examination. Skin: warm, dry, intact HEENT: Normocephalic. Hearing intact. Cardiac: External chest normal in appearance. Respiratory: No cough, audible wheezing or stridor. Abdomen: without gross distension. MS: No obvious swelling or deformities. Able to stand on bilateral tiptoes and bilateral heels.? Able to transition from sit to stand unassisted. Ambulates with bilaterally normal heel strike and toe off SLR negative bilaterally Facet loading negative bilaterally Bilateral lower extremity strength 5/5 Nontender over midline lumbar vertebrae and lumbar paraspinal muscles Nontender over bilateral PSIS Full lumbar range of motion without discomfort Thigh thrust negative, [place] negative, SI compression negative Neurological: Oriented to person, place, time and situation. Thought process intact. No gait abnormalities appreciated. Psychiatric: Appropriate mood and affect. Good judgment and insight. Assessment & Plan Assessment & Plan (1) Lower back pain: Code(s): M54.50 - Low back pain, unspecified Category: Medical Plan Reid is a very pleasant 68-year-old male who presented to the office today for evaluation and management of his chronic lower back pain X-rays ordered for evaluation Continue with Motrin, lidocaine patches and topical ointment as needed Continue with home exercise program Pain today is rated as a 1/10, unable to reproduce his pain with provocative testing. Patient states his pain is significantly improved since onset 1 year ago. Difficulty diagnosed and given patient currently reports pain is very mild and we are not able to reproduce it. He would like to follow-up if and when pain returns so that we can perform physical exam when pain is reproducible. All questions and concerns were answered, patient agrees with the plan. Follow up in pain returns, sooner if needed Orders: Orders XR hip BI w PEL1V Today M54.50 - Low back pain, unspecified XR lumbar spine 4V min Today M54.50 - Low back pain, unspecified Coding Level of Care Code New Pt Level 4 (47019) Complex EM visit Add On G2211 Diagnoses Lower back pain M54.50
== END 2024-04-28 09:34 | disposition home or self-care (01) ==
PROVIDERS: PCP Nurse Practitioner Family; Visit Provider Registered Nurse Emergency
DX: M54.50 Low back pain, unspecified (principal)
CPT/HCPCS: 99204; G2211

== ENCOUNTER 2024-04-28 08:52 | Outpatient (REF) | payer MEDICARE, BC, SELFPAY | END 2024-04-28 08:53 | disposition home or self-care (01) | LOC: HO.HMGCX 08:52 | PROVIDERS: PCP Nurse Practitioner Family; Visit Provider Registered Nurse Emergency | DX: M54.50 Low back pain, unspecified (principal) | CPT/HCPCS: 72110; 73521; 99202 ==

== ENCOUNTER → 2024-04-30 09:19 | Outpatient (BNVA) | payer MEDICARE, BC, SELFPAY | PROVIDERS: PCP Nurse Practitioner Family ==

== ENCOUNTER → 2024-05-03 13:40 | Outpatient (BNVA) | payer MEDICARE, BC, SELFPAY | PROVIDERS: PCP Nurse Practitioner Family ==

== ENCOUNTER 2024-05-25 08:26 | Outpatient (REF) | payer MEDICARE, BC, SELFPAY ==
[2024-05-25 10:25] LABS: Estimated Average Glucose 134 mg/dL; Hemoglobin A1C 170.6875 umol/L; Hemoglobin A1c % 6.3 % (<6.0); Total Hemoglobin (HGBA1C) 3798.9392 umol/L
[2024-05-25 11:34] LABS: Creatinine Urine 45.68 mg/dL; Microalbumin Urine < 5.0 mg/L
== END 2024-05-25 08:27 | disposition home or self-care (01) ==
LOC: HO.HMGCLDS 08:26
PROVIDERS: PCP Nurse Practitioner Family; Visit Provider Nurse Practitioner Family
DX: E11.9 Type 2 diabetes mellitus without complications (principal)
CPT/HCPCS: 36415; 82043; 82570; 83036

== ENCOUNTER 2024-07-06 09:15 | Outpatient (AMB) | payer MEDICARE, BC, SELFPAY ==
--- NOTE | 2024-07-06 09:26 | A.OFFVIS_ITS ---
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 Currently 1/10, intermittent. Prior: Reid is a very pleasant 68-year-old male who presents the office today for evaluation and management of his chronic lower back pain. He has been suffering with this pain for approximately 1 year. Evaluated by Orthopedics 10 months ago and was given a steroid injections to the left knee. He states pain has significantly diminished since then. Endorses left lower back pain with radiation into the thigh Pain is worse at night. Worse with lying down. Improved with activity Patient does home exercise program and walks daily Denies any recent imaging Taking ibuprofen, using lidocaine patches and topical ointment with improvement Pain today is rated a 1/10, intermittent. He reports today the pain is 1/10. Ten months ago pain was an 8/10 but has progressively improved. Now pain is ve ry mild. He still wanted to establish care here in case the pain returns or worsens. Denies radiation of the pain to the foot, denies burning, numbness, tingling of either lower extremity Denies history of chiropractor, acupuncture, massage or previous injections to the back Denies red flag symptoms including loss of bowel, bladder or saddle anesthesia. In terms of muscle damage condition is described as mild, aching Pain is negatively impacting patient's general activity, sleeping Denies implantable devices, pacemaker, defibrillator Denies current use of nicotine, tobacco, alcohol or illicit substances [facility] Medical History Prediabetes High cholesterol HTN (hypertension) Surgical History H/O hernia repair Social History Housing: House Patient Tobacco Use Status: Never used Tobacco e-Cigarette/Vaping Use: Never Used Second Hand Smoke Exposure: No Current occupational status: retired Cognitive needs: No Hearing needs: No Vision needs: No Review of Systems Const All systems reviewed & are unremarkable except as noted in HPI and below Physical Exam Vital Signs: Last Vital Signs Pulse 73 07/06/24 09:43 BP 140/84 H 07/06/24 09:43 Pulse Ox 98 07/06/24 09:43 Oxygen Delivery Method Room Air 07/06/24 09:43 BMI result Body Mass Index 32.5 General: awake, alert, oriented. Answers questions appropriately. Fully engaged in examination. Skin: warm, dry, intact HEENT: Normocephalic. Hearing intact. Cardiac: External chest normal in appearance. Respiratory: No cough, audible wheezing or stridor. Abdomen: without gross distension. MS: No obvious swelling or deformities. Neurological: Oriented to person, place, time and situation. Thought process intact. No gait abnormalities appreciated. Psychiatric: Appropriate mood and affect. Good judgment and insight. Results Reviewed Results Reviewed: 04/28/24 XR/XR hip BI w PEL1V IMPRESSION: Mild degenerative change in the hips. No fracture or dislocation. 04/28/24 XR/XR lumbar spine 4V min IMPRESSION: Moderate multilevel spondylosis in the lumbar spine. Assessment & Plan Assessment & Plan (1) Lower back pain: Code(s): M54.50 - Low back pain, unspecified Category: Medical Plan Patient presents the office today for follow up, review recent x-rays X-rays reviewed, results as per above Continue with Motrin, lidocaine patches and topical ointment as needed Continue with home exercise program Patient's pain today is controlled. States most times he has no pain, currently /10. He will call us in the office if his pain returns or worsens. All questions and concerns were answered, patient agrees with the plan. Follow up as needed. Coding Level of Care Code Est Pt Level 3 (30027) Complex EM visit Add On G2211 Diagnoses Lower back pain M54.50
[2024-07-06 09:43] VITALS: BP 140/84; PULSE 73; O2SAT 98; BMI 32.5
== END 2024-07-06 10:01 | disposition home or self-care (01) ==
PROVIDERS: PCP Nurse Practitioner Family; Visit Provider Registered Nurse Emergency
DX: M54.50 Low back pain, unspecified (principal)
CPT/HCPCS: 99213; G2211

== ENCOUNTER → 2024-07-06 09:15 | Outpatient (BNVA) | payer MEDICARE, BC, SELFPAY | PROVIDERS: PCP Nurse Practitioner Family; Visit Provider Registered Nurse Emergency | DX: M54.50 Low back pain, unspecified (principal) | CPT/HCPCS: 99212 ==

== ENCOUNTER 2024-10-18 08:40 | Outpatient (AMB) | payer MEDICARE, BC, SELFPAY ==
[2024-10-18 08:43] VITALS: BP 110/72; PULSE 65; O2SAT 97; BMI 31.5
--- NOTE | 2024-10-18 08:43 | A.OFFPC_ITS ---
Vital Signs 10/18/24 08:43 Height 5 ft 2 in Weight 172 lb BMI 31.5 BP 110/72 Blood Pressure Location Lt brachial Position Sitting Pulse 65 Pulse Source Pulse Oximeter Pulse Oximetry (%) 97 Oxygen Delivery Method Room Air Intake Visit Reasons: 6m follow up Mitering Machine Operator Required: No Accompanied by: Self / Same As Patient Allergies No Known Allergies Allergy (Verified 10/18/24 09:28) Medication List - Last Reconciled 10/18/24 by MEMY Wise- blood sugar diagnostic (FreeStyle Lite Strips) test blood sugar once a day blood-glucose meter (FreeStyle Lite Meter kit) As directed buspirone 15 mg PO BID 90 days fenofibrate nanocrystallized 48 mg PO DAILY lancets (FreeStyle Lancets) Test blood sugar once a day lisinopril-hydrochlorothiazide 20-12.5 mg 1 tab PO DAILY paroxetine HCl 30 mg PO BID 90 days simvastatin 40 mg PO BEDTIME Tobacco use date assessed: 10/18/24 Fall risk assessment: No Falls in past year Last assessed Fall Risk: 10/18/24 Dental Screening Dental Screen Date: 10/18/24 Did you have a dental visit in the last 12 months?: Yes Did you have a dental problem in the last 6 months where you did not have access to dental care?: No Was dental information given to patient?: Patient has dentist HPI 6m follow up HPI Details Chief Complaint The patient reports good control of blood glucose levels. History of Present Illness The patient is a 68-year-old male presenting with follow-up for Type 2 Diabetes Mellitus management. He reports successful control of his blood glucose levels. Ophthalmologic evaluations are current, suggesting adherence to recommended screenings for diabetes-related complications. The patient denies neuropathy, highlighting an absence of common diabetic peripheral nerve issues. An A1c test performed today indicated a level of 6.4%, aligning with well-managed diabetic status. Social History Health Maintenance - Ophthalmologic evaluations are up to d ate. Review of Systems - Neurological: Denies symptoms of neuro jerrell. - Endocrine/Metabolic: Reports well-cont rolled blood glucose levels. - Eyes: Reports up-to-date eye exams. Physical Exam General: Cooperative, healthy appearing, comfortable, no acute distress and well developed Orientation: Patient oriented x3 Limitations: No limitations Head: Normal to inspection Ears: Hearing grossly normal bilaterally Nose: Normal external nose present Face and sinus: Normal facial exam Eyes: Appearance normal, both eyes and all related structures Neck: Normal visual inspection and Yes full ROM Respiratory: Normal respiratory effort and able to speak in complete sentences. Clear to auscultation bilaterally Cardiovascular: Regular rate and rhythm. Normal S1 and S2 GI: Normal to inspection. Soft to palpation and nontender Skin: No rashes or lesions noted Neuro: Patient oriented x3 Extremities: Feet intact bilaterally, positive sensation with use of monofilament Results - Labs: A1c today was 6.4. Plan 1. 4%. No changes to his medication erin men were necessary, considering the effective management of his blood sugar levels. Regular eye exams remain crucial and are up to date. Plans for further lab assessments were mentioned, and a phy sical examination is scheduled for six months to monitor his ongoing health status.: Discussion Notes I discussed with the patient his diabetes management plan and highlighted the current A1c results of 6.4%, which indicate controlled glycemic levels. The importance of routine ophthalmological exams was reiterated as part of diabetes complication prevention. We agreed on obtaining additional laboratory tests and scheduled his next comprehensive physical examination in six months. The patient acknowledged being informed about the importance of maintaining his current diabetes management regimen. Patient Instructions - Continue current diabetes management p adelfo and monitoring blood glucose levels regularly. - Keep up with scheduled ophthalmologic evaluations. - Follow up with comprehensive physical examination in six months. - Stay informed about any new diabetes s ymptoms and seek medical advice if needed. [facility] Medical History Prediabetes High cholesterol HTN (hypertension) Surgical History H/O hernia repair Social History Housing: House Patient Tobacco Use Status: Never used Tobacco e-Cigarette/Vaping Use: Never Used Second Hand Smoke Exposure: No Current occupational status: retired Cognitive needs: No Hearing needs: No Vision needs: No Questionnaire PHQ-9 Over the last 2 weeks, how often have you been bothered by any of the following problems? 1. Little interest or pleasure in doing things: not at all 2. Feeling down, depressed, or hopeless: not at all 3. Trouble falling or staying asleep, or sleeping too much: several days 4. Feeling tired or having little energy: several days 5. Poor appetite or overeating: not at all 6. Feeling bad about yourself - or that you are a failure or have let yourself or your family down: not at all 7. Trouble concentrating on things, such as reading the newspaper or watching television: several days 8. Moving or speaking so slowly that other people could have noticed. Or the opposite - being so fidgety or restless that you have been moving around a lot more than usual: not at all 9. Thoughts that you would be better off or of hurting yourself in some way: not at all Total score: 3 Depression Screening Interpretation: Negative Depression Screening Done: Yes 76888 - PHQ-9 Billing: Yes Source: Developed by Drs. Ronen Santos, Maylin Nelson, Jonathan Garcia and colleagues, with an educational roberto from [employer]. Thrive Questionnaire Date Thrive assessed: 10/11/24 I am a: Patient What is your living situation today?: I have a steady place to live Within the past 12 months, did the food you bought not last and you didn't have the money to get more?: Never true Within the past 12 months, did you worry whether your food would run out before you got money to buy more?: Never true Do you have trouble paying for medicines?: No Do you have trouble getting transportation to medical appointments?: No Do you have trouble paying your heating and electricity bill?: No Do you have trouble taking care of your child, family member or friend?: No Do you have trouble with day-to-day activities such as bathing, preparing meals, shopping, managing finances, etc.?: No Are you currently unemployed and looking for a job?: No Are you interested in more education?: No Please select the resources that you would like help with: None Currently or been in a relationship where the following occur: No concerns reported THRIVE Score: 0 AUDIT C Alcohol Use Questionnaire (AUDIT-C) 1. How often do you have a drink containing alcohol?: Monthly or less 2. How many drinks containing alcohol do you have on a typical day when you are drinking?: 1 or 2 3. How often do you have six or more drinks on one occasion?: Never Total Score: 1 Score Reviewed/Action Taken: Yes ARBEN-7 AMB Questionnaire ARBEN-7 Date ARBEN - 7 assessed: 10/18/24 Feeling nervous, anxious, or on edge: 0 = Not at all Not being able to stop or control worryin = Not at all Worrying too much about different things: 0 = Not at all Trouble relaxin = Not at all Being so restless that it is hard to sit still: 0 = Not at all Becoming easily annoyed or irritable: 0 = Not at all Feeling afraid as if something awful might happen: 0 = Not at all Total ARBEN-7 score (0-4 normal; 5-9 mild; 10-14 moderate; 15-21 severe): 0 Source: Developed by Drs. Ronen Santos, Maylin Nelson, Jonathan Garcia and colleagues, with an educational roberto from [employer]. ARBEN-7 Assessment Billing ARBEN-7 Assessment Tool: ARBEN-7 Assessment 48648 Physical exam (Primary Care) Vital Signs: Last Vital Signs Pulse 65 10/18/24 08:43 BP 110/72 10/18/24 08:43 Pulse Ox 97 10/18/24 08:43 Oxygen Delivery Method Room Air 10/18/24 08:43 BMI result Body Mass Index 31.5 Tobacco/Smoking Status: Tobacco use Status Tobacco use date assessed 10/18/24 10/18/24 08:44 Patient Tobacco Use Status Never used Tobacco 10/18/24 08:44 e-Cigarette/Vaping Use Never Used 10/18/24 08:44 PHQ-9: PHQ-9 Score PHQ-9: Total score 3 10/18/24 09:18 Depression Screening Interpretation: Negative Thrive Assessment: Date of Thrive Assessment Date Thrive assessed 10/11/24 10/18/24 08:44 Currently or been in a relationship where the following occur: No concerns reported Results AMB Hemoglobin A1c AMB Hemoglobin A1c 6.4 % Last Edit by Ryan Philip CMA on 10/18/24 09: 20 Results Reviewed Results Reviewed: Laboratory Last Values Hgb A1c (Clinic) 6.4 % (4.0-6.0) H 10/18/24 09:19 Coding Level of Care Code Est Pt Level 3 (30191) Diagnoses Diabetes E11.9 Screening PSA (prostate specific antigen) Z12.5 Additional Codes ARBEN-7 Assessment Billing - ARBEN-7 Assessment Tool: ARBEN-7 Assessment 57452 ([id number]) PHQ-9 - 96696 - PHQ-9 Billing: Yes ([id number]) Assessment & Plan Assessment & Plan (1) Diabetes: Code(s): E11.9 - Type 2 diabetes mellitus without complications Category: Medical (2) Screening PSA (prostate specific antigen): Code(s): Z12.5 - Encounter for screening for malignant neoplasm of prostate Category: Medical Plan . Orders: Orders TSH reflex Free T4 Today E11.9 - Type 2 diabetes mellitus without complications AMB Hemoglobin A1c Today Z13.9 - Encounter for screening, unspecified Complete Blood Count Auto Diff Today E11.9 - Type 2 diabetes mellitus without complications Comprehensive [place]. Panel Fast Today E11.9 - Type 2 diabetes mellitus without complications UA CC w/rflx Micro + Cult Today E11.9 - Type 2 diabetes mellitus without complications Lipid Panel Today E11.9 - Type 2 diabetes mellitus without complications Prostate Specific Antigen Scr Today Z12.5 - Encounter for screening for malignant neoplasm of prostate
--- OUTSIDE RECORDS SUMMARY | 2024-10-18 09:15 | XMS_ITS | Clinical Summary ---
Author Organization [facility] Address [address] [place] [address] Care Team Providers Care Motor Vehicle Compliance Analyst Name Role Phone Felton Liu MD Primary Care Provider [phone] Encounters Date Type Department Care Team Description 09/01/2024 Telephone [facility] in [place] [facility] [address], [place] [address] Joseph Haynes PA from Last 3 Months Social History Tobacco Use Types Packs/Day Years Used Date Smoking Tobacco: Never Assessed Sex and Gender Information Value Date Recorded Sex Assigned at Not on file Legal Sex Male 6:11 PM EST Gender Identity Not on file Sexual Orientation Not on file Plan of Treatment Health Maintenance Due Date Last Done Comments DTaP,Tdap,and Td Vaccines (1 - Tdap) 12/21/1974 Pneumococcal Vaccine: 50+ Ye ars (1 of 1 - PCV) 12/21/2005 Zoster Vaccines (1 of 2) 12/21/2005 COVID-19 Vaccine ( - 2023-2 5 season) 2024 Abdominal Aortic Aneurysm (A AA) Screen 09/01/2024 Cholesterol Screening (Lipid Panel) 09/01/2024 Colorectal Cancer Screening: Colonoscopy 09/01/2024 Depression Screening 09/01/2024 Falls Risk Assessment 09/01/2024 Hepatitis C Screening 09/01/2024 Hypertension/CHF/CAD Annual BMP Blood Test 09/01/2024 Social Influencers of Health Screening 09/01/2024 Influenza Vaccine (Season Ended) 2025 RSV Immunization Adult Patie nts (1 - 1-dose 75+ series) 12/21/2030 HIB Vaccines Aged Out No longer eligi ble based on patient's age to complete this topic HPV Vaccines Aged Out No longer eligi ble based on patient's age to complete this topic Hepatitis A Vaccines Aged Out No long er eligible based on patient's age to complete this topic Hepatitis B Vaccines Aged Out No long er eligible based on patient's age to complete this topic IPV Vaccines Aged Out No longer eligi ble based on patient's age to complete this topic MMR Vaccines Aged Out No longer eligi ble based on patient's age to complete this topic Meningococcal ACWY Vaccine Aged Out N o longer eligible based on patient's age to complete this topic Meningococcal B Vaccine Aged Out No l onger eligible based on patient's age to complete this topic RSV Immunization Patients Un nany 20 months Aged Out No longer eligible b ased on patient's age to complete this topic Varicella Vaccines Aged Out No longer eligible based on patient's age to complete this topic Care Teams Motor Vehicle Compliance Analyst Relationship Specialty Start Date End Date Felton Liu MD [address] [facility] [address] [facility] [place] [address] PCP - General Internal Medicine 02/17/12
== END 2024-10-18 10:01 | disposition home or self-care (01) ==
LOC: HO.HMCC 08:41
PROVIDERS: PCP Nurse Practitioner Family; Visit Provider Nurse Practitioner Family
DX: E11.9 Type 2 diabetes mellitus without complications (principal); Z12.5 Encounter for screening for malignant neoplasm of prostate; Z13.9 Encounter for screening, unspecified

== ENCOUNTER 2024-10-18 08:40 | Outpatient (REF) | payer MEDICARE, BC, SELFPAY ==
--- OUTSIDE RECORDS SUMMARY | 2024-10-18 10:21 | XMS_ITS | Clinical Summary ---
Author Organization [facility] Address [address] [place] [address] Care Team Providers Care Riding Coach Name Role Phone Felton Liu MD Primary Care Provider [phone] Encounters Date Type Department Care Team Description 09/01/2024 Telephone [facility] in [facility] [address], [place] [address] Joseph Haynes PA from Last [...] age to complete this topic Care Teams Riding Coach Relationship Specialty Start Date End Date Felton Liu MD [address] [facility] [address] [facility] [place] [address] PCP - General Internal Medicine 02/17/12
[2024-10-18 10:50] LABS: MANUAL DIFF FLAG NO
[2024-10-18 10:54] LABS: Basophils Absolute Auto 0.1 X10*3/uL (0.0-0.2); Basophils Percent Auto 0.6 % (0-2); Eosinophils Absolute Auto 0.3 X10*3/uL (0.0-0.4); Eosinophils Percent Auto 2.9 % (0-4); Hematocrit 46.5 % (42.0-52.0); Hemoglobin 15.7 g/dl (14.0-18.0); Imm Gran Abs Auto 0.08 X10*3/uL (0.00-0.03); Imm Gran Pct Auto 0.8 % (0.0-0.4); Lymphocytes Absolute Auto 2.4 X10*3/uL (1.2-4.9); Lymphocytes Percent Auto 25.8 % (20-40); Mean Corpuscular HGB Conc 33.8 g/dl (31.0-36.0); Mean Corpuscular Hemoglobin 28.9 pg (27.0-33.0); Mean Corpuscular Volume 85.5 fL (80.0-98.0); Mean Platelet Volume 11.9 fL (9.4-12.4); Monocytes Absolute Auto 0.7 X10*3/uL (0.1-1.2); Monocytes Percent Auto 7.5 % (2-11); Neutrophils Absolute Auto 5.9 x10*3/uL (2.0-8.3); Neutrophils Percent Auto 62.4 % (45-73); Platelet Count 204 X10*3/uL (160-400); Red Blood Count 5.44 X10*6/uL (4.60-5.80); Red Cell Distribution Width 12.6 % (11.0-16.0); White Blood Count 9.4 X10*3/uL (4.8-10.8)
[2024-10-18 10:56] LABS: Appearance Urine Clear; Color Urine Yellow; Glucose Urine UA Negative (Negative); Leukocyte Esterase Urine Trace (Negative); Nitrite Urine Negative (Negative); Specific Gravity - Urine 1.015 (1.005-1.025); UMIC TRIGGER UACC YES; Urine Blood Negative (Negative); Urine Ketones Negative (Negative); Urine Protein Negative (Neg-Trace)
[2024-10-18 11:06] LABS: Bacteria Urine None Seen (None Seen); Hyaline Casts Urine 0-2 /LPF (0-2); RBC Urine 0-2 /HPF (0-2); Squamous Epithelial Cell Urine 0-2 /HPF (0-2); WBC Urine 0-5 /HPF (0-5)
[2024-10-18 11:40] LABS: Alanine Aminotransferase 45 U/L (0-40); Albumin Level 4.5 g/dL (3.5-5.0); Alkaline Phosphatase 68 U/L (39-117); Anion Gap 12 (12-20); Aspartate Amino Transferase 32 U/L (5-37); Bilirubin Total 0.4 mg/dL (0.0-1.0); Blood Urea Nitrogen 17 mg/dL (9-16); Calcium 10.1 mg/dL (8.4-10.2); Carbon Dioxide 28 mmol/L (22-29); Chloride 106 mmol/L (96-108); Cholesterol 155 mg/dL (<200); Estimated Glomerular Filt Rate > 60; Glucose Fasting 135 mg/dL (60-99); HDL Cholesterol 50 mg/dL (>40); LDL Cholesterol Calculated 80 mg/dL (<100); Potassium 4.3 mmol/L (3.3-5.1); Sodium 142 mmol/L (135-145); Total Protein 6.9 g/dL (6.5-8.0); Triglycerides 127 mg/dL (<150)
[2024-10-18 11:44] LABS: TSH reflex Free T4 2.37 uIU/mL (0.32-4.0)
[2024-10-18 11:58] LABS: Prostate Specific Antigen Scr 2.37 ng/mL (<0.05-4.0)
== END 2024-10-18 08:41 | disposition home or self-care (01) ==
LOC: HO.HMGCLDS 08:40
PROVIDERS: PCP Nurse Practitioner Family; Visit Provider Nurse Practitioner Family
DX: E11.9 Type 2 diabetes mellitus without complications (principal); Z12.5 Encounter for screening for malignant neoplasm of prostate
CPT/HCPCS: 36415; 80053; 80061; 81001; 83036; 84153; 84443; 85025; 96127; 99212

== ENCOUNTER 2024-11-17 08:47 | Outpatient (REF) | payer MEDICARE, BC, SELFPAY ==
--- NOTE | ~2024-11-17 | US_ITS ---
EXAMINATION: US ABDOMEN HISTORY: R74.8 - Abnormal levels of other serum enzymes TECHNIQUE: Real-time grayscale ultrasound imaging of the abdomen was performed and images were reviewed. COMPARISON: There are no prior studies for comparison. FINDINGS: Liver: The right lobe of the liver measures 14.6 cm in size. The left lobe of the liver measures 9.7 cm in size. The liver demonstrates normal homogeneous echotexture. No focal mass or intrahepatic biliary ductal dilatation is identified. There is normal hepatopedal flow in the portal vein. Gallbladder and biliary tree: The gallbladder is unremarkable, without evidence of calculi, wall thickening, or pericholecystic fluid. There is no sonographic Hernandez sign. The common bile duct is normal in caliber measuring 5 mm. Kidneys: The right kidney measures 10.6 cm in length. The left kidney measures 11.4 cm in length. The kidneys are unremarkable, without evidence of masses, hydronephrosis, or calculi. Pancreas: The pancreatic head, neck, and body are unremarkable. The pancreatic tail is obscured by bowel gas. Spleen: The spleen is normal in size and contour, measuring 10.6 cm in length. A 1.3 cm splenule is also noted. Abdominal aorta and inferior vena cava: The visualized portions of the abdominal aorta and inferior vena cava are normal in caliber. There is no free fluid in the abdomen. US/US abdomen complete IMPRESSION: Unremarkable abdominal ultrasound. Electronically signed by: Ronen Durham MD 11/17/2024 09:44 AM EDT
--- OUTSIDE RECORDS SUMMARY | 2024-11-17 09:08 | XMS_ITS | Clinical Summary ---
Author Organization [facility] Address [address] [place] [address] Care Team Providers Care Radiator Specialist Name Role Phone Felton Liu MD Primary Care Provider Encounters Date Type Department Care Team Description 09/01/2024 Telephone [facility] in [facility] Emergency Department [address], [place] [address] Joseph Haynes PA from Last [...] age to complete this topic Care Teams Radiator Specialist Relationship Specialty Start Date End Date Felton Liu MD [address] [facility] [address] [facility] [place] [address] PCP - General Internal Medicine 02/17/12
== END 2024-11-17 08:48 | disposition home or self-care (01) ==
LOC: HO.HMGCX 08:47
PROVIDERS: PCP Nurse Practitioner Family; Visit Provider Nurse Practitioner Family
DX: R74.8 Abnormal levels of other serum enzymes (principal)
CPT/HCPCS: 76700

== ENCOUNTER → 2024-11-17 08:49 | Outpatient (BNV) | payer MEDICARE, BC, SELFPAY | PROVIDERS: PCP Nurse Practitioner Family; Visit Provider Radiology Diagnostic Radiology | DX: R74.8 Abnormal levels of other serum enzymes (principal) | CPT/HCPCS: 76700 ==

== ENCOUNTER 2025-03-21 07:49 | Outpatient (AMB) | payer MEDICARE, BC, SELFPAY ==
--- NOTE | 2025-03-21 07:50 | AM.OFFWIN_ITS ---
Intake Vital Signs 03/21/25 07:51 Height 5 ft 2 in Weight 175 lb BMI 32.0 BP 110/80 Blood Pressure Location Lt brachial Position Sitting Respiration 16 Pulse 94 Pulse Source Pulse Oximeter Temp 98.2 F Temp Source Oral Pulse Oximetry (%) 96 Oxygen Delivery Method Room Air Intake Visit Reasons: EP Dizzy, off balance feeling Intake Note: Pt is here today c/o off balance feeling, veritgo x3days Patient Tobacco Use Status: Never used Tobacco Allergies No Known Allergies Allergy (Verified 03/21/25 07:54) HPI HPI Comments History of Present Illness Details History of Present Illness - The patient is a 69-year-old male pres enting with dizziness and balance concer ns. - The dizziness began a few days ago, pr imarily occurring after lying down and turning on his side, leading to a spinning sensation. - The patient experienced vertigo upon g etting out of bed, which he describes as a feeling of unsteadiness. - He has been using Dramamine, which see ms to alleviate the symptoms when taken at night and in the morning. - There is no associated chest pain, david rtness of breath, blurry vision, or headaches. - The patient has a history of ear fluid buildup, which was previously drained, improving his hearing. - He reports borderline diabetes mellitu s, with a previous A1c of 6.1, and has been advised by a wood car builder. - He has no change in diet or medication s. - He denies melena, hematochezia, bruisi ng, abd pain, nausea, vomiting, or diarrhea. Physical Exam General: Cooperative, healthy appearing, comfortable, no acute distress and well developed Orientation: Patient oriented x3 Limitations: No limitations Head: Normal to inspection Ears: Hearing grossly normal bilaterally. No cerumen noted. Nose: Normal external nose present Face and sinus: Normal facial exam Eyes: Appearance normal, both eyes and all related structures. PERRLA, EOMI. No nystagmus noted. Neck: Normal visual inspection and Yes full ROM. No carotid bruits noted. Respiratory: Normal respiratory effort and able to speak in complete sentences. Clear to auscultation bilaterally. No w/r/r noted. Cardiovascular: Regular rate and rhythm. Normal S1 and S2. No m/r/g noted. GI: Normal to inspection. Soft to palpation and nontender Skin: No rashes or lesions noted Neuro: Patient oriented x3. CN II- XII intact. Extremities: Normal to inspection Patient was informed and verbally consented to the use of an ambient scribe for clinic note documentation during this visit. [facility] Medical History Prediabetes High cholesterol HTN (hypertension) Surgical History H/O hernia repair Social History Housing: House Patient Tobacco Use Status: Never used Tobacco e-Cigarette/Vaping Use: Never Used Second Hand Smoke Exposure: No Current occupational status: retired Cognitive needs: No Hearing needs: No Vision needs: No Review of Systems Const All systems reviewed & are unremarkable except as noted in HPI and below Physical Exam Vital Signs: Last Vital Signs Temp 98.2 F 03/21/25 07:51 Pulse 94 03/21/25 07:51 Resp 16 03/21/25 07:51 BP 110/80 03/21/25 07:51 Pulse Ox 96 03/21/25 07:51 Oxygen Delivery Method Room Air 03/21/25 07:51 BMI result Body Mass Index 32.0 Assessment & Plan Assessment & Plan (1) Dizziness: Code(s): R42 - Dizziness and giddiness Plan Most likely vertigo vs BPPV vs electrolyte abnormality plan - Plan to check blood work including electrolytes, A1c, and thyroid function to identify potential causes of dizziness. - Continue using Dramamine as needed for symptom relief. - Follow-up with primary care physician in April for further evaluation if symptoms persist. Orders: Orders Comprehensive Met. Panel Today R42 - Dizziness and giddiness Complete Blood Count Auto Diff Today R42 - Dizziness and giddiness Hemoglobin A1c Today R42 - Dizziness and giddiness TSH reflex Free T4 Today R42 - Dizziness and giddiness Coding Level of Care Code Est Pt Level 4 (05891) Diagnoses Dizziness R42
[2025-03-21 07:51] VITALS: BP 110/80; PULSE 94; RESP 16; TEMP 36.8; O2SAT 96; BMI 32.0
--- OUTSIDE RECORDS SUMMARY | 2025-03-21 07:52 | XMS_ITS | Clinical Summary ---
Author Organization [facility] Address [address] [place] [address] Care Team Providers Care Welt Insole Channeler Name Role Phone Felton Liu MD Primary Care Provider [phone] Social History Tobacco Use Types Packs/Day Years [...] 12/21/2005 Zoster Vaccines (1 of 2) 12/21/2005 Depression Screening 07/07/2024 Abdominal Aortic Aneurysm (A AA) Screen 09/01/2024 Cholesterol Screening (Lipid Panel) 09/01/2024 Colorectal Cancer Screening: Colonoscopy 09/01/2024 Falls Risk Assessment 09/01/2024 Hepatitis C Screening 09/01/2024 Hypertension/CHF/CAD Annual BMP Blood Test 09/01/2024 Social Influencers of Health Screening 09/01/2024 COVID-19 Vaccine (1 - 2023-2 5 season) 2025 Influenza Vaccine (#1) 2025 RSV Immunization Adult Patie nts (1 [...] age to complete this topic Care Teams Welt Insole Channeler Relationship Specialty Start Date End Date Felton Liu MD [address] [facility] [address] [place] [address] PCP - General Internal Medicine 02/17/12
== END 2025-03-21 08:47 | disposition home or self-care (01) ==
PROVIDERS: PCP Nurse Practitioner Family; Visit Provider Physician Assistant Medical
DX: R42 Dizziness and giddiness (principal)

== ENCOUNTER 2025-03-21 07:49 | Outpatient (REF) | payer MEDICARE, BC, SELFPAY ==
[2025-03-21 10:07] LABS: MANUAL DIFF FLAG NO
[2025-03-21 10:11] LABS: Hematocrit 44.0 % (42.0-52.0); Hemoglobin 14.9 g/dl (14.0-18.0); Imm Gran Abs Auto 0.11 X10*3/uL (0.00-0.03); Imm Gran Pct Auto 1.2 % (0.0-0.4); Lymphocytes Absolute Auto 2.3 X10*3/uL (1.2-4.9); Mean Corpuscular HGB Conc 33.9 g/dl (31.0-36.0); Mean Corpuscular Hemoglobin 28.7 pg (27.0-33.0); Mean Corpuscular Volume 84.8 fL (80.0-98.0); NRBC Abs Auto 0.000 X10*3/uL (0.0-0.012); NRBC Pct Auto 0.0 /100WBC (0.0-0.2); Platelet Count 201 X10*3/uL (160-400); Red Blood Count 5.19 X10*6/uL (4.60-5.80); White Blood Count 9.1 X10*3/uL (4.8-10.8)
[2025-03-21 10:30] LABS: Hemoglobin A1C 200.4373 umol/L; Total Hemoglobin (HGBA1C) 3813.5012 umol/L
[2025-03-21 10:41] LABS: Alanine Aminotransferase 37 U/L (0-40); Albumin Level 4.6 g/dL (3.5-5.0); Alkaline Phosphatase 58 U/L (39-117); Anion Gap 11 (12-20); Aspartate Amino Transferase 29 U/L (5-37); Blood Urea Nitrogen 17 mg/dL (9-16); Calcium 9.4 mg/dL (8.4-10.2); Carbon Dioxide 27 mmol/L (22-29); Chloride 109 mmol/L (96-108); Estimated Glomerular Filt Rate > 60; Potassium 3.9 mmol/L (3.3-5.1); Sodium 143 mmol/L (135-145); Total Protein 6.6 g/dL (6.5-8.0)
== END 2025-03-21 07:50 | disposition home or self-care (01) ==
LOC: HO.HMGCLDS 07:49
PROVIDERS: PCP Nurse Practitioner Family; Visit Provider Physician Assistant Medical
DX: R42 Dizziness and giddiness (principal); R73.03 Prediabetes
CPT/HCPCS: 36415; 80053; 83036; 84443; 85025; 99212

== ENCOUNTER 2025-04-25 08:41 | Outpatient (AMB) | payer MEDICARE, BC, SELFPAY ==
--- NOTE | 2025-04-25 08:49 | A.OFFVIS_ITS ---
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 Accompanied by: Self / Same As Patient Allergies No Known Allergies Allergy (Verified 04/25/25 09:40) Medication List - Last Reconciled 04/25/25 by EMMY Wise- blood sugar diagnostic (FreeStyle Lite Strips) test blood sugar once a day blood-glucose meter (FreeStyle Lite Meter kit) As directed buspirone 15 mg PO BID 90 days fenofibrate nanocrystallized 48 mg PO DAILY lancets (FreeStyle Lancets) Test blood sugar once a day lisinopril-hydrochlorothiazide 20-12.5 mg 1 tab PO DAILY meclizine (Motion Sickness (meclizine)) 25 mg PO DAILY PRN metformin ER (Glucophage XR) 500 mg PO BID 30 days paroxetine HCl 30 mg PO BID 90 days prednisone 40 mg (2 x 20 mg) PO DAILY 5 days simvastatin 40 mg PO BEDTIME HPI AWV HPI Details awv: ccc not filled out. PPP in scan pile HPI Comments History of Present Illness Details Chief Complaint The patient presents for a Medicare wellness check and reports ongoing dizziness. History of Present Illness The patient is a 69-year-old male presenting with a Medicare wellness check and management of diabetes. He has a history of diabetes mellitus and denies any current neuropathies, polyuria, or polydipsia. He is aware of the signs of hypoglycemia and how to correct it. The patient reports ongoing dizziness that began about a month ago, which is mostly positional, occurring with lying down, getting up, or turning his head. The dizziness is suspected to be benign positional vertigo, and he is currently on meclizine, which provides minimal relief. A referral to physical therapy for evaluation and treatment has been made, and if symptoms persist, an ENT consultation will be considered. The patient is noted to be obese, with a diastasis recti observed during the physical examination. Social History Health Maintenance - Vaccinations administered during the v isit Review of Systems - Neurological: Reports dizziness, denie s nausea or vomiting - Respiratory: Denies shortness of breat h - Cardiovascular: Denies chest pain Physical Exam General: Cooperative, healthy appearing, comfortable, no acute distress and well developed Orientation: Patient oriented x3 Limitations: No limitations Head: Normal to inspection Ears: Hearing grossly normal bilaterally Nose: Normal external nose present Face and sinus: Normal facial exam Eyes: Appearance normal, both eyes and all related structures Neck: Normal visual inspection and Yes full ROM Respiratory: Normal respiratory effort and able to speak in complete sentences. Clear to auscultation bilaterally Cardiovascular: Regular rate and rhythm. Normal S1 and S2 GI: Diastasis rectus noticed. Obese. Skin: No rashes or lesions noted. Some generalized moles and birthmarks but nothing acutely open, no ulcerations. Neuro: Patient oriented x3. Ongoing dizziness, mostly positional. Extremities: Normal to inspection. Feet intact, positive sensation due to some monofilament. Results - Labs: Hemoglobin A1c level at 7.0% Plan 1. Diabetes Mellitus The patient's hemoglobin A1c is 7.0%, and metformin will be added to his treatment regimen to improve glycemic control. 2. Positional Vertigo The patient experiences dizziness primarily when changing positions, suggesting benign positional vertigo. He is currently taking meclizine with minimal relief and will be referred to physical therapy for further evaluation and treatment. If symptoms persist, an ENT consultation will be considered, and a short course of prednisone has been prescribed. 3. Obesity The patient is noted to be obese, and lifestyle modifications will be discussed to address weight management. Discussion Notes I discussed with the patient the management of his diabetes, including the addition of metformin to his regimen due to his current A1c level of 7.0%. We also reviewed his dizziness, suspected to be benign positional vertigo, and the limited relief from meclizine. I recommended physical therapy and discussed the possibility of an ENT referral if symptoms persist, along with a short course of prednisone. Patient Instructions - Start taking metformin as prescribed t o help manage blood sugar levels. - Attend physical therapy sessions for d izziness evaluation and treatment. - Monitor symptoms and follow up with EN T if dizziness persists. - Follow a healthy diet and exercise sheryl n to address obesity. [facility] Medical History Prediabetes High cholesterol HTN (hypertension) Surgical History H/O hernia repair Social History Housing: House Patient Tobacco Use Status: Never used Tobacco e-Cigarette/Vaping Use: Never Used Second Hand Smoke Exposure: No Current occupational status: retired Cognitive needs: No Hearing needs: No Vision needs: No Questionnaire Medicare Wellness Checkup What [age] What gender do you identify with?: male During the past 4 weeks, how much have you been bothered by emotional problems such as feeling anxious, depressed, irritable, sad or downhearted, and blue?: moderately During the past 4 weeks, has your physical & emotional health limited your social activities with family, friends, neighbors, or groups?: not at all During the past 4 weeks, how much bodily pain have you generally had?: very mild pain During the past 4 weeks, was someone available to help you if you needed & wanted help?: yes, quite a bit During the past 4 weeks, what was the hardest physical activity you could do for at least 2 minutes?: moderate Can you get to places out of walking distance without help? (For eg., can you travel alone on buses, taxis or drive your car?): Yes Can you go shopping for groceries or clothes without someone's help?: Yes Can you prepare your own meals?: Yes Can you do your housework without help?: Yes Because of any health problems, do you need the help of another person with your personal care needs such as eating, bathing, dressing or getting around the house?: No Can you handle your own money without help?: Yes During the past 4 weeks, how would you rate your health in general?: good During the past 4 weeks how have things been going for you?: good & bad parts about equal Are you having difficulties driving your car?: no Do you always fasten your seat belt when you are in a car?: yes, usually During past 4 weeks, have you been bothered by the following: never: Sexual problems?, Trouble eating well?, Teeth or denture problems? and Problems using the telephone? and sometimes: Falling or dizzy when standing up and Tiredness or fatigue? Have you fallen 2 or more times in the past year?: No Are you afraid of falling?: Yes Are you a smoker?: no During the past 4 weeks, how many drinks of wine, beer, or other alcoholic b everages did you have?: no alcohol at all Do you exercise for about 20 minutes 3 or more times a week?: yes, most of the time Have you been given information to help with the following?: yes: Hazards in your house that might hurt you? and yes: Keeping track of your medications? How often do you have trouble taking medicines the way you have been told to take them?: I always take medicine as prescribed How confident are you that you can control & manage most of your health problems?: somewhat confident What is your race?: White Mini Mental State Exam (MMSE) Orientation What is the (year) (season) (date) (day) (month)?: year, season, date, day and month Where are we (state) (county) (town or city) (hospital) (floor)?: state, county, town or city, hospital/clinic and floor Registration Name of 3 unrelated objects clearly and slowly, then ask patient to repeat all 3 of them. (1st repeat determines score. Make sure they can repeat all three): object 1, object 2 and object 3 Attention & Calculation (CHOOSE ONE) Spell WORLD backwards (DLROW): 5 letters Recall Ask patient to repeat the 3 items from question #3.: object 1, object 2 and object 3 Language Show patient a wristwatch & ask what it is. Repeat for pencil.: watch and pencil Ask the patient to repeat the phrase 'No ifs, ands, or buts' after you.: correct Ask the patient to 'take a piece of paper with their right hand' 'fold paper in half' 'place paper on floor': take paper in right hand, fold paper in half and place paper on floor Print the sentence 'CLOSE YOUR EYES' on a piece. If patient actually closes eyes then score.: followed written direction Give patient a blank piece of paper & ask to write a sentence. Score if it contains a noun & verb.: sentence contains subject and verb Ask patient to copy figure of intersecting pentagons exactly. Score if all 10 angles & 2 intersects are included.: all 10 angles present & 2 are intersected Score Score: 30 Activity of Daily Living Bathing - sponge bath, tub bath or shower: receives no assistance (gets in/out by self, if usual bathing means Dressing - getting clothes from closets & drawers, including inner/outer garments & fasteners.: gets clothes & gets completely dressed without help Toileting - going to the 'toilet room' for urine/bowel elimination & cleaning self/arranging clothes: goes to toilet room, cleans self, arranges clothes without help Transfer: moves in & out of bed and chair without help (may use support object) Continence: controls urination/bowel movements completely by self Feeding: feeds self without help Total Score: 0 Information obtained from: patient Using telephone: independent Traveling: independent Shopping: independent Preparing meals: independent Housework: independent Taking medicine: independent Managing money: independent PHQ-9 Over the last 2 weeks, how often have you been bothered by any of the following problems? 1. Little interest or pleasure in doing things: not at all 2. Feeling down, depressed, or hopeless: not at all 3. Trouble falling or staying asleep, or sleeping too much: several days 4. Feeling tired or having little energy: several days 5. Poor appetite or overeating: several days 6. Feeling bad about yourself - or that you are a failure or have let yourself or your family down: not at all 7. Trouble concentrating on things, such as reading the newspaper or watching television: several days 8. Moving or speaking so slowly that other people could have noticed. Or the opposite - being so fidgety or restless that you have been moving around a lot more than usual: several days 9. Thoughts that you would be better off or of hurting yourself in some way: not at all Total score: 5 Depression Screening Interpretation: Negative Depression Screening Done: Yes 43136 - PHQ-9 Billing: Yes Source: Developed by Drs. Ronen Santos, Maylin Nelson, Jonathan Garcia and colleagues, with an educational roberto from [employer]. Physical Exam Vital Signs: Last Vital Signs Pulse 69 04/25/25 08:54 Resp 16 04/25/25 08:54 BP 122/78 04/25/25 08:54 Pulse Ox 95 04/25/25 08:54 Oxygen Delivery Method Room Air 04/25/25 08:54 BMI result Body Mass Index 32.2 Neuro Other: able to stand from seated position. able to tandem walk, + whisper test, neg rhomberg Assessment & Plan Assessment & Plan (1) Screening for colon cancer: Code(s): Z12.11 - Encounter for screening for malignant neoplasm of colon (2) Diabetes: Code(s): E11.9 - Type 2 diabetes mellitus without complications (3) Dizziness: Code(s): R42 - Dizziness and giddiness (4) Encounter for subsequent annual wellness visit (AWV) in Medicare patient: Code(s): Z00.00 - Encounter for general adult medical examination without abnormal findings Plan . Orders: Orders PT Evaluation and Treatment Today R42 - Dizziness and giddiness Microalbumin, Random (w Creat) Today E11.9 - Type 2 diabetes mellitus without complications Referrals Gastroenterology Referral Z12.11 - Encounter for screening for malignant neoplasm of colon Medications: New metformin ER (Glucophage XR) 500 mg PO BID 60 tabs 3RF 30 days prednisone 40 mg (2 x 20 mg) PO DAILY 10 tabs 0RF 5 days Quality Reporting (2019) Depression/Bipolar (159/160/161/177) PHQ-9: Total score: 5 Coding Level of Care Code Medicare Subsequent (G0439) Est Pt Level 3 (98170) Diagnoses Screening for colon cancer Z12.11 Diabetes E11.9 Dizziness R42 Encounter for subsequent annual wellness visit (AWV) in Medicare patient Z00.00 CPT Codes Advance Care Planning - Advance Care Planning discussion: On file, no changes ([id number]) Advance Care Planning - Time spent: 1-15 minutes, on File ([id number]) Additional Codes PHQ-9 - 46951 - PHQ-9 Billing: Yes ([id number]) Advance Care Planning Advance Care Planning discussion: On file, no changes Forms completed: Health Care Proxy (scanned), MOLST (scanned) and Living will (already done according to pt) Time spent: 1-15 minutes, on File Actual minutes spent: 4
[2025-04-25 08:54] VITALS: BP 122/78; PULSE 69; RESP 16; O2SAT 95; BMI 32.2
--- OUTSIDE RECORDS SUMMARY | 2025-04-25 09:38 | XMS_ITS | Clinical Summary ---
Author Organization [facility] ity Address [address] [place] [address] Care Team Providers Care Wood Gouger Name Role Phone Felton Liu MD Primary Care Provider [phone] Social History Tobacco Use Types Packs/Day Years Used Date Smoking Tobacco: Never Assessed Sex and Gender Information Value Date Recorded Sex Assigned at Not on file Legal Sex Male 6:11 PM EST Gender Identity Not on file Sexual Orientation Not on file Plan of Treatment Health Maintenance Due Date Last Done Comments Colorectal Cancer Screening: Colonoscopy 1955 DTaP,Tdap,and Td Vaccines (1 - Tdap) 12/21/1974 Pneumococcal Vaccine: 50+ Ye ars (1 of 1 - PCV) 12/21/2005 Zoster Vaccines (1 of 2) 12/21/2005 Depression Screening 07/07/2024 Abdominal Aortic Aneurysm (A AA) Screen 09/01/2024 Cholesterol Screening (Lipid Panel) 09/01/2024 Falls Risk Assessment 09/01/2024 Hepatitis C [...] age to complete this topic Care Teams Wood Gouger Relationship Specialty Start Date End Date Felton Liu MD [address] [facility] [address] [place] [address] PCP - General Internal Medicine 02/17/12
== END 2025-04-25 09:36 | disposition home or self-care (01) ==
LOC: HO.HMCC 08:42
PROVIDERS: PCP Nurse Practitioner Family; Visit Provider Nurse Practitioner Family
DX: Z00.00 Encounter for general adult medical examination without abnormal findings (principal); E11.9 Type 2 diabetes mellitus without complications; R42 Dizziness and giddiness; Z12.11 Encounter for screening for malignant neoplasm of colon

== ENCOUNTER → 2025-04-25 08:41 | Outpatient (BNVA) | payer MEDICARE, BC, SELFPAY | PROVIDERS: PCP Nurse Practitioner Family; Visit Provider Nurse Practitioner Family | DX: Z00.00 Encounter for general adult medical examination without abnormal findings (principal); I10 Essential (primary) hypertension; R42 Dizziness and giddiness; E11.9 Type 2 diabetes mellitus without complications; E66.9 Obesity, unspecified; Z68.32 Body mass index [BMI] 32.0-32.9, adult | CPT/HCPCS: 96127; 99212 ==

== ENCOUNTER 2025-05-11 09:43 | Outpatient (RCR) | payer MEDICARE, BC, SELFPAY ==
[2025-05-06 07:55] VITALS: BP 128/75; PULSE 72; O2SAT 95
--- NOTE | 2025-05-06 09:27 | MHC.PT.EP ---
[facility] [place] Office [place] Office [place] Office [address] Janessa Flores [address] [phone] F: [phone] F: [phone] F: [phone] F: [phone] Physical Therapy Plan of Care Date of Evaluation: Date of Surgery: Diagnosis: BPPV Assessment: 69 y/o male referred to PT with dizziness and giddiness. Onset of room-spinning dizziness about one month ago which occurs with rolling in bed, getting in/out of bed, sit to stands, bending, and turning head. Dizziness lasts < 30seconds. Also reports unsteadiness for a long time not related to dizziness. Examination shows normal VBI testing, negative smooth pursuits/ saccades, impaired gait pattern, and positive for BPPV. Pt was treated for R posterior canal BPPV with Ismael and upon re-test, nystagmus was less and slower. Performed another Ismael maneuver. Pt educated on BPPV anatomy, treatment, and precautions. Recommend PT 3x/week for 4 weeks to address impairments, and optimize functional mobility. Frequency and Duration: The patient will be seen 3x/week x 5 weeks Short Term Goals: 3 weeks Pt will demonstrate pacing with bed mobility Camera Person Goals: 5 weeks Pt will be (-) for nystagmus of reports of vertigo in all diagnostic directions B to resolutions of BPPV Tolerate position changes without complaints vertigo to improve safety and return to pre-onset level Pt to be able to functionally move in all planes without provocation of dizziness and return to PLOF Pt to be educated on sx and indications to return to therapy when needed Treatment Plan: Modalities to reduce pain, spasms and effusion. Manual therapy to restore motion and function. Therapeutic exercise to improve strength and flexibility. Neuromuscular re-education for posture and balance. Therapeutic activities to return to functional activities of daily living. Electronically signed by: Payam Whiting PT Please sign and return to therapist. Thank you for your referral.
--- NOTE | 2025-06-20 09:17 | MHC.PT.DC ---
[facility] [place] Office [place] Office [place] Office [address] Janessa Flores [address] [phone] F: [phone] F: [phone] F: [phone] F: [phone] Physical Therapy Discharge Report Diagnosis: BPPV Date of Surgery: Date of Evaluation: 05/06/25 Date of Discharge: 06/20/25 Treatments to Date: 3 Cancellations to Date: 0 No Shows to Date: 0 Discharge Status: Achieved Goals Improved Function Independent with HEP Discharge Summary: Did not re-test for BPPV as he was negative last session. He has had no room-spinning dizziness and is back to baseline performing all ADL's and iADL's. Re-assessed balance and WNL. Pt reports no more sx. We kept chart open for 30 days in case of room-spinning dizziness recurrence and at this time, appropriate to close chart. Electronically signed by: Hermila Whiting PT Please sign and return to therapist. Thank you for your referral.
== END 2025-06-20 09:17 | disposition home or self-care (01) ==
LOC: HO.PT 09:43
PROVIDERS: PCP Nurse Practitioner Family; Visit Provider Nurse Practitioner Family
DX: R42 Dizziness and giddiness (principal)
CPT/HCPCS: 95992; 97112; 97162